=== PATIENT | male | born 1960 | race Caucasian/White ===

== ENCOUNTER 2021-07-11 13:02 | Emergency (ER) | payer OTHER, SELFPAY ==
[2021-07-11 13:15] VITALS: BP 152/87; PULSE 85; RESP 18; TEMP 36.8; O2SAT 99
[2021-07-11 15:18] LABS: Basophils Absolute Auto 0.1 K/mm3 (0.0-0.1); Basophils Percent Auto 0.7 % (0.2-1.2); Eosinophils Absolute Auto 0.2 K/mm3 (0-0.3); Eosinophils Percent Auto 2.2 % (0-4.4); Hematocrit 45.4 % (42.0-52.0); Hemoglobin 15.1 g/dL (14.0-18.0); Immature Granulocyte Absolute 0.03 K/mm3 (0.00-0.031); Immature Granulocyte Percent A 0.3 % (0-0.5); Lymphocytes Absolute Auto 3.04 K/mm3 (0.9-3.2); Lymphocytes Percent Auto 30.2 % (18.3-44.2); Mean Corpuscular HGB Conc 33.3 g/dl (32-36); Mean Corpuscular Hemoglobin 32.3 pg (26-34); Mean Platelet Volume 9.4 fl (7.4-10.4); Monocytes Percent Auto 10.3 % (2.6-8.5); Neutrophils Absolute Auto 5.7 K/mm3 (1.3-6.7); Neutrophils Percent Auto 56.3 % (45.5-73.1); Platelet Count Result 193 k/mm3 (150-375); Red Blood Count 4.68 M/mm3 (4.6-6.20); Red Cell Distribution Width 13.8 % (11.5-14.5); White Blood Count 10.1 K/mm3 (4.5-10.0)
[2021-07-11 15:24] LABS: Anion Gap 3 mmol/L (8-16); Blood Urea Nitrogen 14 mg/dL (9-20); Calcium 9.2 mg/dL (8.4-10.2); Carbon Dioxide 30 mmol/L (22-30); Chloride 107 mmol/L (98-107); Estimated CRCL calculation 97 ml/min; Estimated Glomerular Filt Rate > 60; Glucose 67 mg/dL (65-110); Potassium 3.8 mmol/L (3.4-5.0); Sodium 140 mmol/L (137-145)
--- NOTE | 2021-07-11 15:30 | ED.GENADULT ---
HPI - General Adult General Chief complaint: GI Bleed Stated complaint: bloody stool Time Seen by Provider: 07/11/21 14:57 Source: RN notes reviewed History of Present Illness HPI narrative: Patient presents emergency department from home for rectal bleeding. Patient states for the past 2 weeks he has been having blood in the toilet with pooping as well as with wiping he states that the blood is bright red in nature he states he is having 1 bowel movement a day denies any fevers or chills abdominal pain nausea vomiting diarrhea dizziness weakness or any other symptoms. States he takes a baby aspirin a day. States he has never had a colonoscopy Related Data Home Medications Medication Instructions Recorded Confirmed phenytoin sodium extended 100 mg 300 mg PO BID cap 05/10/19 10/12/20 capsule Adult One Daily Multivitamin 0.4 mg PO DAILY 05/18/19 10/12/20 aspirin [Aspir-81] 81 mg PO DAILY 05/18/19 10/12/20 loratadine 10 mg capsule 10 mg PO DAILY 09/19/20 10/12/20 Allergies Allergy/AdvReac Type Severity Reaction Status Date / Time Sulfa (Sulfonamide AdvReac Severe Other Verified 07/11/21 13:17 Antibiotics) Review of Systems Review of Systems: Gen.: Denies fevers or chills ENT: Denies congestion Respiratory: Denies shortness of breath or cough CV: Denies chest pain or palpitations GI: See HPI Musculoskeletal: Denies back pain or muscle pain Neuro: Denies numbness, tingling, weakness or focal weakness Skin: Denies rash Except as documented, all other systems reviewed and negative [facility] Past Medical History Medical History Asthma Coronary artery disease Patient of Dr. Nikhil Garcia. Foot fracture, right Hyperlipemia Hypertension MVP (mitral valve prolapse) Renal cyst, acquired Renal malignant neoplasm Status post cryoablation in 2014. Seizure disorder He has not had a seizure since 1994, but is on long-term Dilantin as he apparently had recurrent seizures when that drug was stopped. Swelling of right parotid gland Testicular hypofunction Tobacco dependence Surgical History Surgical History H/O removal of cyst History of heart artery stent x 2 in 2013. History of tonsillectomy Status post incision and drainage Left facial abscess. Family History Family History Sibling Cerebrovascular accident Mother Family history of Alzheimer's disease Sibling Lymphoma Father Hypertension Social History Social History Social History: The patient is and lives with his in [place]. They have 2 children. He designates his as his surrogate decision maker. 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 He smoked up to 2 packs cigarettes per day and now smokes be 10 and 15 cigarettes a day. No alcohol or drug abuse. Smoking packs per day: 0.5 Smoking cigarettes per day: 10.0 Years smoked: 25 Smoking pack-years: 12.50 Smoking status: Current every day smoker Tobacco type: cigarettes Second hand tobacco smoke exposure: Yes Alcohol intake: never Substance use: never Substance use type: does not use Gender identity (if verbalized by the patient): Male Spiritual care concerns: No Agree to blood products: Yes Exam Narrative: APPEARANCE: No acute distress, nontoxic, resting in bed EYES: EOMI HEENT: Normocephalic, atraumatic, OMM RESPIRATORY: No respiratory distress Clear to auscultation bilaterally with no rhonchi wheezing or rales. CARDIOVASCULAR: Regular rate and rhythm without murmurs rubs or gallops. ABDOMINAL: Soft, nontender, nondistended, no rebound or guarding Rectal: No hemorrhoids or fissures no active bleeding soft brown stool that is Hemoccult negative MUSCULOSKELETAl: Moves all extremities. NEURO: Awake and alert. Neris
[2021-07-11 15:31] LABS: Prothrombin Time 12.7 Seconds (11.1-14.7)
== END 2021-07-11 15:40 | disposition home or self-care (01) ==
PROVIDERS: Emergency Provider Emergency Medicine
DX: K62.5 Hemorrhage of anus and rectum (principal); F17.210 Nicotine dependence, cigarettes, uncomplicated; J45.909 Unspecified asthma, uncomplicated; I25.10 Atherosclerotic heart disease of native coronary artery without angina pectoris; E78.5 Hyperlipidemia, unspecified; I10 Essential (primary) hypertension; G40.909 Epilepsy, unspecified, not intractable, without status epilepticus
CPT/HCPCS: 36415; 80048; 85025; 85610; 85730; 86850; 86900; 86901; 99283

== ENCOUNTER 2021-08-27 00:39 | Day surgery (SDC) | payer OTHER, SELFPAY ==
[2021-08-15 09:28] VITALS: BMI 32.5
--- NOTE | 2021-08-27 07:11 | PM.HPGS ---
History of Present Illness History of Present Illness Consent: Risks, benefits, and alternatives have been discussed and questions answered. Patient agrees to proceed with procedure. Chief complaint: neoplasm screening Narrative: Klaus Saleem is a 60 year old male Was referred for colon cancer screening. This is his 1st colonoscopy. He has seen some red blood lately in his stools. Review of Systems Review of Systems: All systems reviewed & are unremarkable except as noted in HPI and below PMFSH Past Medical History Medical History Asthma Coronary artery disease Patient of Dr. Nikhil Garcia. Foot fracture, right Hyperlipemia Hypertension MVP (mitral valve prolapse) Renal cyst, acquired Renal malignant neoplasm Status post cryoablation in 2014. Seizure disorder He has not had a seizure since 1994, but is on long-term Dilantin as he apparently had recurrent seizures when that drug was stopped. Swelling of right parotid gland Testicular hypofunction Tobacco dependence Surgical History Surgical History H/O removal of cyst History of heart artery stent x 2 in 2013. History of tonsillectomy Status post incision and drainage Left facial abscess. Family History Family History Sibling Cerebrovascular accident Mother Family history of Alzheimer's disease Sibling Lymphoma Father Hypertension Social History Social History Social History: The patient is and lives with his in [place]. They have 2 children. He designates his as his surrogate decision maker. 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 He smoked up to 2 packs cigarettes per day and now smokes be 10 and 15 cigarettes a day. No alcohol or drug abuse. Smoking packs per day: 0.5 Smoking cigarettes per day: 10.0 Years smoked: 20 Smoking pack-years: 10.00 Smoking status: Current every day smoker Tobacco type: cigarettes Second hand tobacco smoke exposure: Yes Alcohol intake: never Substance use: never Substance use type: does not use Living arrangements: with family Gender identity (if verbalized by the patient): Male Spiritual care concerns: No Agree to blood products: Yes Meds Home Medications and Allergies Home Medications Medication Instructions Recorded Confirmed Type phenytoin sodium extended 100 mg 300 mg PO BID cap 05/10/19 08/15/21 History capsule aspirin [Aspir-81] 81 mg PO DAILY 05/18/19 08/15/21 History multivit with min-folic acid 1 tablet PO DAILY 05/18/19 08/15/21 History [Adult One Daily Multivitamin] loratadine 10 mg capsule 10 mg PO DAILY 09/19/20 08/15/21 History telmisartan 40 mg tablet 40 mg PO DAILY #90 tablet 05/16/21 08/15/21 Rx simvastatin 20 mg tablet 40 mg PO QPM tablet 07/17/21 08/15/21 History Allergies Allergy/AdvReac Type Severity Reaction Status Date / Time Sulfa (Sulfonamide AdvReac Severe Other Verified 08/27/21 09:33 Antibiotics) Exam Resp: Auscultation: clear to auscultation bilaterally Cardio: Rate: regular rate Rhythm: regular rhythm GI: GI Palp: Yes Soft to palpation and No Tenderness to palpation present (GI) Assessment and Plan Assessment and plan (1) Colon cancer screening: Code(s): Z12.11 - Encounter for screening for malignant neoplasm of colon Status: Acute Assessment and Plan: Colonoscopy with possible biopsy or polypectomy or cautery or injection of substances.
[2021-08-27 09:33] VITALS: BP 146/84; PULSE 85; RESP 16; TEMP 36.7; O2SAT 100; BMI 30.4
--- NOTE | 2021-08-27 09:38 | WPDANESEPPF ---
Anes - Initial Pre Proc Eval Procedure: Operation Date: 08/27/21 11:00 Proposed Procedures p Screening Colonoscopy - Jermain Soria MD Date/Time: 08/27/21 09:38 Surgeon: Jermain Soria MD Pre Op Diagnosis: neoplasm screening Patient Data Age: 60 Gender: M Height: 1.83 m Weight: 101.7 kg Last Vital Signs Temp 36.7 C 08/27/21 09:33 Pulse 85 08/27/21 09:33 Resp 16 08/27/21 09:33 BP 146/84 H 08/27/21 09:33 Pulse Ox 100 08/27/21 09:33 Allergies Allergy/AdvReac Type Severity Reaction Status Date / Time Sulfa (Sulfonamide AdvReac Severe Other Verified 08/27/21 09:33 Antibiotics) Home Medications Medication Instructions Recorded Confirmed Type phenytoin sodium extended 100 mg 300 mg PO BID cap 05/10/19 08/15/21 History capsule aspirin [Aspir-81] 81 mg PO DAILY 05/18/19 08/15/21 History multivit with min-folic acid 1 tablet PO DAILY 05/18/19 08/15/21 History [Adult One Daily Multivitamin] loratadine 10 mg capsule 10 mg PO DAILY 09/19/20 08/15/21 History telmisartan 40 mg tablet 40 mg PO DAILY #90 tablet 05/16/21 08/15/21 Rx simvastatin 20 mg tablet 40 mg PO QPM tablet 07/17/21 08/15/21 History Patient hx anesthesia problems: none Family hx anesthesia problems: none Results Review: All pre-operative results and documents have been reviewed as part of the pre-operative evaluation. [facility] Past Medical History Medical History Asthma Coronary artery disease Patient of Dr. Nikhil Garcia. Foot fracture, right Hyperlipemia Hypertension MVP (mitral valve prolapse) Renal cyst, acquired Renal malignant neoplasm Status post cryoablation in 2014. Seizure disorder He has not had a seizure since 1994, but is on long-term Dilantin as he apparently had recurrent seizures when that drug was stopped. Swelling of right parotid gland Testicular hypofunction Tobacco dependence Surgical History Surgical History H/O removal of cyst History of heart artery stent x 2 in 2014. History of tonsillectomy Status post incision and drainage Left facial abscess. Family History Family History Sibling Cerebrovascular accident Mother Family history of Alzheimer's disease Sibling Lymphoma Father Hypertension Social History Social History Social History: The patient is and lives with his in [place]. They have 2 children. He designates his as his surrogate decision maker. 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 He smoked up to 2 packs cigarettes per day and now smokes be 10 and 15 cigarettes a day. No alcohol or drug abuse. Smoking packs per day: 0.5 Smoking cigarettes per day: 10.0 Years smoked: 20 Smoking pack-years: 10.00 Smoking status: Current every day smoker Tobacco type: cigarettes Second hand tobacco smoke exposure: Yes Alcohol intake: never Substance use: never Substance use type: does not use Living arrangements: with family Gender identity (if verbalized by the patient): Male Spiritual care concerns: No Agree to blood products: Yes Anes - Eval Final PreProcedure Day of Procedure 08/27/21 09:38 Patient weight: obese Heart: regular rate and rhythm Lungs: clear to auscultation Airway: Mallampati scale class III Neurological: alert and oriented Last oral intake: >/= 8 hours ASA classification: III Emergent: no Anesthetic plan: proceed Anesthesia type and monitoring: general GIVS and standard monitoring Results Review: All pre-operative results and documents have been reviewed as part of the pre-operative evaluation. Informed Consent: The patient's anesthetic plan and its attendant risks and benefits were discussed with the patient/family/POA. Questions were solicited and answers provided to
[2021-08-27] MEDS: LACTATED RINGERS 1,000 ML 150 ML IV CONT (09:44)
[2021-08-27 10:45] VITALS: BP 122/79; PULSE 71; RESP 13; O2SAT 99
[2021-08-27 10:55] VITALS: BP 124/84; PULSE 69; RESP 15; O2SAT 100
[2021-08-27 11:05] VITALS: BP 131/87; PULSE 65; RESP 16; O2SAT 100
== END 2021-08-27 11:18 | disposition home or self-care (01) ==
PROVIDERS: PCP Family Medicine; Visit Provider Internal Medicine Gastroenterology
PROC: 0DJD8ZZ Inspection of Lower Intestinal Tract, Via Natural or Artificial Opening Endoscopic (ICD-10-PCS; CPT 45378; principal; 2021-08-27 11:00)
DX: Z12.11 Encounter for screening for malignant neoplasm of colon (principal); D12.4 Benign neoplasm of descending colon; D12.5 Benign neoplasm of sigmoid colon; K64.8 Other hemorrhoids; K57.30 Diverticulosis of large intestine without perforation or abscess without bleeding; K63.5 Polyp of colon; Z79.82 Long term (current) use of aspirin; J45.909 Unspecified asthma, uncomplicated; I25.10 Atherosclerotic heart disease of native coronary artery without angina pectoris; E78.5 Hyperlipidemia, unspecified; I10 Essential (primary) hypertension; I34.1 Nonrheumatic mitral (valve) prolapse; N28.1 Cyst of kidney, acquired; G40.909 Epilepsy, unspecified, not intractable, without status epilepticus; Z85.53 Personal history of malignant neoplasm of renal pelvis; F17.210 Nicotine dependence, cigarettes, uncomplicated; E66.9 Obesity, unspecified; Z68.30 Body mass index [BMI] 30.0-30.9, adult; Z95.5 Presence of coronary angioplasty implant and graft
CPT/HCPCS: 45385; 45381; 88305; J2704; J7120

== ENCOUNTER 2022-01-21 17:11 | Observation (INO) | payer OTHER, SELFPAY ==
[2022-01-21] VITALS (10 sets, daily range): BP systolic 140–160; BP diastolic 72–95; PULSE 63–74; RESP 9–18; TEMP 36.9; O2SAT 97–99
--- NOTE | ~2022-01-21 | XR_ITS ---
EXAMINATION: XR chest 2V Exam Date/Time: 01/21/2022 17:30 CDT HISTORY: Generalized cp,SOB, and weakness HXCAD,ASTHMA,HTN,MVP,SMOKER Comparison: 05/18/2019. RESULT: Lines, tubes, and devices: None. Lungs and pleura: Unchanged mild mid and lower lung reticulonodular opacities, otherwise clear. No f ocal consolidation. Cardiomediastinal silhouette: Stable. Other: No acute osseous or upper abdominal finding. IMPRESSION: Pulmonary opacities may represent bronchiolitis, as can be seen with atypical infection, asthma, aspi ration, and small airways disease. Reviewed, dictated and finalized at location K. IMPRESSION: Pulmonary opacities may represent bronchiolitis, as can be seen with atypical i nfection, asthma, aspiration, and small airways disease.
--- NOTE | ~2022-01-21 | NM_ITS ---
EXAMINATION: NM liz stress w perfusion DATE: 01/23/2022 11:46 CDT INDICATION: Chest pain TECHNIQUE: Rest images were obtained following intravenous administration of 9 mCi Tc99m tetrofosmin (Myoview). The patient was infused intravenously with Lexiscan (regadenoson). Then, 26.9 mCi Tc99m te trofosmin (Myoview) was administered intravenously, and stress images were obtained. Data was reconst ructed into short axis and horizontal and vertical long axis SPECT images. Gated SPECT images were al so obtained. COMPARISON: None. FINDINGS: There is a small, mild intensity partially reversible perfusion defect of the anterior and lateral major of the left ventricle, consistent with ischemia. There is no segmental wall motion abn ormality. Left ventricular ejection fraction measures 57%. IMPRESSION: 1. Small, mild intensity partially reversible perfusion defect anterior and lateral major of the left ventricle, consistent with ischemia.. 2. Decreased left ventricular ejection fraction measuring 57%. Reviewed, dictated and finalized at location A. IMPRESSION: 1. Small, mild intensity partially reversible perfusion defect anterior and lat eral major of the left ventricle, consistent with ischemia.. 2. Decreased left ventricular ejection fraction measuring 57%.
--- NOTE | 2022-01-21 17:12 | ECG_ITS ---
Measurements Intervals [place] Rate: 75 P: 48 WV: 141 QRS: 25 QRSD: 109 T: 49 QT: 398 QTc: 446 Interpretive Statements SINUS RHYTHM INCOMPLETE RIGHT BUNDLE BRANCH BLOCK BORDERLINE ECG COMPARED TO ECG 05/18/2019 12:08:32 NO SIGNIFICANT CHANGES Electronically Signed On 01-21-2022 20:41:07 CDT by Heraclio Maldonado D.O.
[2022-01-21 17:33] LABS: Basophils Absolute Auto 0.1 K/mm3 (0.0-0.1); Basophils Percent Auto 0.8 % (0.2-1.2); Eosinophils Absolute Auto 0.3 K/mm3 (0-0.3); Eosinophils Percent Auto 3.6 % (0-4.4); Hematocrit 44.8 % (42.0-52.0); Hemoglobin 15.2 g/dL (14.0-18.0); Immature Granulocyte Absolute 0.03 K/mm3 (0.00-0.031); Immature Granulocyte Percent A 0.4 % (0-0.5); Lymphocytes Absolute Auto 2.62 K/mm3 (0.9-3.2); Lymphocytes Percent Auto 31.2 % (18.3-44.2); Mean Corpuscular HGB Conc 33.9 g/dl (32-36); Mean Corpuscular Hemoglobin 32.1 pg (26-34); Mean Corpuscular Volume 94.5 fl (80-100); Mean Platelet Volume 9.2 fl (7.4-10.4); Monocytes Absolute Auto 0.9 K/mm3 (0.1-0.6); Monocytes Percent Auto 10.1 % (2.6-8.5); Neutrophils Absolute Auto 4.5 K/mm3 (1.3-6.7); Neutrophils Percent Auto 53.9 % (45.5-73.1); Platelet Count Result 193 k/mm3 (150-375); Red Blood Count 4.74 M/mm3 (4.6-6.20); Red Cell Distribution Width 14.2 % (11.5-14.5); White Blood Count 8.4 K/mm3 (4.5-10.0)
[2022-01-21 17:44] LABS: Alanine Aminotransferase 37 U/L (6-50); Albumin Level 4.1 g/dL (3.5-5.1); Alkaline Phosphatase 113 U/L (38-126); Anion Gap 7 mmol/L (8-16); Aspartate Amino Transferase 26 U/L (17-59); Bilirubin,Total 0.3 mg/dL (0.2-1.3); Blood Urea Nitrogen 13 mg/dL (9-20); Calcium 8.9 mg/dL (8.4-10.2); Carbon Dioxide 25 mmol/L (22-30); Chloride 104 mmol/L (98-107); Estimated CRCL calculation 107 ml/min; Estimated Glomerular Filt Rate > 60; Glucose 118 mg/dL (65-110); Lipase 121 U/L (23-300); Potassium 3.2 mmol/L (3.4-5.0); Sodium 136 mmol/L (137-145)
[2022-01-21 17:47] LABS: Prothrombin Time 13.2 Seconds (11.1-14.7)
[2022-01-21 17:49] LABS: Partial Thromboplastin Time 32.9 SECONDS (22.3-36.8)
[2022-01-21 17:56] LABS: Troponin I < 0.012 ng/mL (0.000-0.034)
--- NOTE | 2022-01-21 19:56 | ED.CHESTPAIN ---
HPI - Chest Pain General Chief Complaint: Chest Pain Stated Complaint: short of breath, chest pain Time Seen by Provider: 01/21/22 19:45 Source: RN notes reviewed History of Present Illness HPI narrative: Patient presents emergency department from home for chest pain. Patient states he was at work today and was leaving work when he had tightness in the left side of his chest that went to his back he states the pain is now resolved at this time states he does note shortness of breath with the pain states he has been feeling fatigued over the past several days states he is taken at home COVID test that has been negative he denies any fevers or chills cough abdominal pain nausea vomiting or any other symptoms patient does note cardiac history with a history of stents in [address] Garcia Related Data Home Medications Medication Instructions Recorded Confirmed phenytoin sodium extended 100 mg 300 mg PO BID 05/10/19 12/03/21 capsule aspirin 81 mg tablet,delayed 81 mg PO DAILY 05/18/19 12/03/21 release (Aspir-) multivitamin with minerals-folic 1 tablet PO DAILY 05/18/19 12/03/21 acid 0.4 mg tablet (Adult One Daily Multivitamin) loratadine 10 mg capsule 10 mg PO DAILY 09/19/20 12/03/21 simvastatin 20 mg tablet 40 mg PO QPM 07/17/21 12/03/21 Allergies Allergy/AdvReac Type Severity Reaction Status Date / Time Sulfa (Sulfonamide AdvReac Severe Other Verified 12/03/21 11:22 Antibiotics) Review of Systems Review of Systems: Gen.: Denies fevers or chills ENT: Denies congestion Respiratory: Denies shortness of breath or cough CV: Reports chest pain GI: Denies abdominal pain nausea, emesis or diarrhea Musculoskeletal: Denies back pain or muscle pain Neuro: Denies numbness, tingling, reports generalized weakness Skin: Denies rash Except as documented, all other systems reviewed and negative PMFSH Past Medical History Medical History Asthma Coronary artery disease Patient of Dr. Nikhil Garcia. Foot fracture, right Hyperlipemia Hypertension MVP (mitral valve prolapse) Renal cyst, acquired Renal malignant neoplasm Status post cryoablation in 2014. Seizure disorder He has not had a seizure since 1994, but is on long-term Dilantin as he apparently had recurrent seizures when that drug was stopped. Swelling of right parotid gland Testicular hypofunction Tobacco dependence Surgical History Surgical History H/O removal of cyst History of heart artery stent x 2 in 2014. History of tonsillectomy Status post incision and drainage Left facial abscess. Family History Family History Sibling Cerebrovascular accident Mother Family history of Alzheimer's disease Sibling Lymphoma Father Hypertension Social History Social History Social History: The patient is and lives with his in [place]. They have 2 children. He designates his as his surrogate decision maker. 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 No alcohol or drug abuse. Smoking packs per day: 0.5 Smoking cigarettes per day: 10.0 Years smoked: 20 Smoking pack-years: 10.00 Smoking status: Current every day smoker Tobacco type: cigarettes Second hand tobacco smoke exposure: Yes Alcohol intake: never Substance use: never Substance use type: does not use Gender identity (if verbalized by the patient): Male Spiritual care concerns: No Agree to blood products: Yes Exam Narrative: APPEARANCE: No acute distress, nontoxic, resting in bed EYES: EOMI HEENT: Normocephalic, atraumatic, OMM RESPIRATORY: No respiratory distress Clear to auscultation bilaterally with no rhonchi wheezing or rales. CARDIOVASCULAR: Regular rate and
[2022-01-21] MEDS: POTASSIUM CHLORIDE 20 MEQ TABLET PO (20:20)
[2022-01-21 20:22] LABS: D Dimer 0.29 ug/mL (<0.48)
[2022-01-21 20:52] LABS: Troponin I < 0.012 ng/mL (0.000-0.034)
[2022-01-21] MEDS: ASPIRIN 81 MG CHEWABLE TABLET 324 MG PO (21:39)
--- NOTE | 2022-01-21 22:05 | PM.IMHP ---
H&P: HPI History of Present Illness Date/Time: 01/21/22 22:05 Chief Complaint: Chest pain. Narrative: This is a very pleasant 61-year-old male with with coronary artery disease status post stent x2 in 2013 who presented to the emergency department earlier this afternoon for evaluation of chest pain.?He is a patient of Dr. Nikhil Garcia and he is due to have a yearly checkup with him. The last several weeks he has been getting unusually fatigued with activity such as mowing or playing with his grand children. Today while walking out of work he developed nonradiating, left anterior chest tightness with mild lightheadedness and sweating. He denies associated shortness of breath, nausea, and vomiting. He rates his discomfort at 6-7/10 when it first started and it is now 3/10 after receiving baby aspirin in the emergency department. Initial troponin was negative and EKG did not show any acute ST segment changes. Given his cardiac history he is being admitted overnight for closer monitoring and Cardiology consultation tomorrow. Review of Systems Review of Systems: Twelve systems were reviewed. No recent cold or flu symptoms. No epigastric or abdominal pain. No significant symptoms of GERD or indigestion. He does not have reproducible tenderness over the chest wall. No pleuritic pain. No lower extremity edema. Except as documented, all other systems were reviewed and are negative. [facility] Past Medical History Medical History (Updated 01/21/22 @ 22:53 by Tram Donahue PA-C) Asthma Coronary artery disease Patient of Dr. Nikhil Garcia. 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 Seizure disorder He has not had a seizure since 1994, but is on long-term Dilantin as he apparently had recurrent seizures when that drug was stopped. Tobacco dependence Surgical History Surgical History (Updated 01/21/22 @ 22:45 by Tram Donahue PA-C) History of heart artery stent (2013) x 2 in 2013. History of removal of cyst History of tonsillectomy Status post incision and drainage Left facial abscess. Family History Family History Sibling Cerebrovascular accident Mother Family history of Alzheimer's disease Sibling Lymphoma Father Hypertension Social History Social History (Updated 01/21/22 @ 22:46 by Tram Donahue PA-C) Social History: The patient is and lives with his in [place]. They have 2 children. He designates his as his surrogate decision maker. 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 No alcohol or drug abuse. he designates his , Lanie Saleem, as his surrogate decision maker and he wishes to be a full code. Spiritual care concerns: No Agree to blood products: Yes Meds Home Medications and Allergies Home Medications Medication Instructions Recorded Confirmed Type phenytoin sodium extended 100 mg 300 mg PO BID 05/10/19 12/03/21 History capsule aspirin 81 mg tablet,delayed 81 mg PO DAILY 05/18/19 12/03/21 History release (Aspir-) multivitamin with minerals-folic 1 tablet PO DAILY 05/18/19 12/03/21 History acid 0.4 mg tablet (Adult One Daily Multivitamin) loratadine 10 mg capsule 10 mg PO DAILY 09/19/20 12/03/21 History simvastatin 20 mg tablet 40 mg PO QPM 07/17/21 12/03/21 History telmisartan 40 mg tablet 40 mg PO DAILY #90 tabs 11/28/21 12/03/21 Rx Allergies Allergy/AdvReac Type Severity Reaction Status Date / Time Sulfa (Sulfonamide AdvReac Severe Other Verified 12/03/21 11:22 Antibiotics) Vital Signs Vital Signs - 24 hr 01/21/22 17:22 01/21/22 20:10 Temperature 98.4 F Pulse Rate 73 67 Respiratory Rate 18 12 Blood Pressure 160/72 H Pulse Oximetry 99 97 Oxygen Delivery Room Air Exam Narrative: General: Well-developed male supi
[2022-01-21] MEDS: ASPIRIN 81 MG CHEWABLE TABLET 324 MG (23:05)
[2022-01-21 23:14] LABS: SARS-CoV-2 RNA PCR Negative
[2022-01-21 23:41] LABS: Phenytoin Dilantin 4 ug/mL (10-20)
[2022-01-21 23:50] LABS: Troponin I < 0.012 ng/mL (0.000-0.034)
[2022-01-22] VITALS (16 sets, daily range): BP systolic 136–152; BP diastolic 64–91; PULSE 61–80; RESP 12–18; TEMP 35.5–36.8; O2SAT 96–100; BMI 30.9
[2022-01-22] MEDS: PHENYTOIN SODIUM 100 MG EXTENDED RELEASE CAP 300 MG PO ×3 (01:11→20:53)
--- NOTE | 2022-01-22 01:19 | ADMGEN ---
This patient, Klaus Saleem, was admitted to IMU Room 206-02 on 01/22/22 at 0000. Patient/family oriented to hospital policies and general routines including ID bracelet, bed and alarms, visiting hours, pain management, procedures, bathroom and other care routines, personal items, smoking policy, room service/diet, and visiting hours. Information on how to activate the Rapid Response Team has been discussed. Patient/Family are encouraged to report perceived risks to care and to ask questions if they do not understand what they are told or what they should do.
[2022-01-22 05:12] LABS: Anion Gap 7 mmol/L (8-16); Blood Urea Nitrogen 12 mg/dL (9-20); Carbon Dioxide 28 mmol/L (22-30); Chloride 107 mmol/L (98-107); Estimated CRCL calculation 105 ml/min; Estimated Glomerular Filt Rate > 60; Glucose 80 mg/dL (65-110); Potassium 4.2 mmol/L (3.4-5.0); Sodium 142 mmol/L (137-145)
[2022-01-22] MEDS: TELMISARTAN 40 MG TABLET PO (08:22)
[2022-01-22] MEDS: ASPIRIN 81 MG ENTERIC TABLET PO (08:22)
[2022-01-22] MEDS: ENOXAPARIN 40 MG/0.4 ML SYRINGE SUB-Q (13:52)
--- NOTE | 2022-01-22 14:57 | PM.CNCAR ---
Assessment and Plan Assessment and plan (1) Hypertension: Qualifiers: Hypertension type: essential hypertension Qualified Code(s): I10 - Essential (primary) hypertension Code(s): I10 - Essential (primary) hypertension Status: Acute (2) Coronary artery disease: Qualifiers: Coronary Disease-Associated Artery/Lesion type: [place] artery [place] vs. transplanted heart: [place] heart Associated angina: without angina Qualified Code(s): I25.10 - Atherosclerotic heart disease of [place] coronary artery without angina pectoris Code(s): I25.10 - Atherosclerotic heart disease of [place] coronary artery without angina pectoris Status: Acute (3) Chest pain: Code(s): R07.9 - Chest pain, unspecified Status: Acute (4) Hyperlipemia: Qualifiers: Hyperlipidemia type: mixed hyperlipidemia Qualified Code(s): E78.2 - Mixed hyperlipidemia Code(s): E78.5 - Hyperlipidemia, unspecified Status: Acute Plan Continue with ASA and statin. Will start beta jass for antianginal therapy. Stress MPI tomorrow. Patient to be NPO at midnight. Will check lipid panel. History of Present Illness History of Present Illness Consult date/time: 01/22/22 14:57 Requesting physician: Parminder Nino DO Consult reason: chest pain Reason For Visit: chest pain Narrative: Patient is a 61-year-old male with a history of CAD s/p prior PCI, hypertension, and hyperlipidemia who presented with chest pain. Had left anterior chest pain while walking yesterday. Non-radiating, no associated symptoms. Chest pain resolved after being in the ER waiting room. Has not had recurrence of chest pain. Troponins negative x 3, ECG negative for ischemic changes. Patient had last cath in 2019, and patient reports his chest pain yesterday felt similar to when he was cathed two years ago. Cardiac cath 05/2019 showed coronary artery disease angiographically stable following percutaneous revascularization in 2014 angiographic appearance of the arteries appears to be essentially unchanged that which was seen at the conclusion of the previous procedure. Review of Systems Review of Systems: All systems reviewed & are unremarkable except as noted in HPI and below (HPI) [facility] Past Medical History Medical History Asthma Coronary artery disease Patient of Dr. Nikhil Garcia. 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 Seizure disorder He has not had a seizure since 1994, but is on long-term Dilantin as he apparently had recurrent seizures when that drug was stopped. Tobacco dependence Surgical History Surgical History History of heart artery stent (2013) x 2 in 2014. History of removal of cyst History of tonsillectomy Status post incision and drainage Left facial abscess. Family History Family History Sibling Cerebrovascular accident Mother Family history of Alzheimer's disease Sibling Lymphoma Father Hypertension Acute myocardial infarction Grandparent Congestive heart failure Social History Social History Social History: The patient is and lives with his in [place]. They have 2 children. He designates his as his surrogate decision maker. 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 No alcohol or drug abuse. he designates his , Lanie Saleem, as his surrogate decision maker and he wishes to be a full code. Smoking packs per day: 0.5 Smoking cigarettes per day: 10.0 Smoking status: Current every day smoker Tobacco type: cigarettes Second hand tobacco smoke exposure: Yes Alcohol intake: former Substance use: never Spi
[2022-01-22 16:19] LABS: Cholesterol 155 mg/dL (0-200); HDL Direct 40 mg/dL; Triglycerides 105 mg/dL (<150)
[2022-01-22 16:30] LABS: LDL Cholesterol Direct 85 mg/dL
[2022-01-22] MEDS: SIMVASTATIN 20 MG TABLET 40 MG PO (17:13)
--- NOTE | 2022-01-22 18:28 | PM.IMPN ---
Progress Note: A&P Assessment and Plan (1) Chest pain: Code(s): R07.9 - Chest pain, unspecified Status: Acute Assessment and Plan: Unsure of etiology, appreciate Cardiology consultation, stress test pending tomorrow (2) Hypertension: Qualifiers: Hypertension type: essential hypertension Qualified Code(s): I10 - Essential (primary) hypertension Code(s): I10 - Essential (primary) hypertension Status: Acute Assessment and Plan: Continue telmisartan (3) Hyperlipemia: Qualifiers: Hyperlipidemia type: mixed hyperlipidemia Qualified Code(s): E78.2 - Mixed hyperlipidemia Code(s): E78.5 - Hyperlipidemia, unspecified Status: Acute Assessment and Plan: Continue statin (4) Seizure disorder: Code(s): G40.909 - Epilepsy, unspecified, not intractable, without status epilepticus Status: Acute Assessment and Plan: Has not had a seizure for years, continue Dilantin for long-term therapy (5) Tobacco dependence: Code(s): F17.200 - Nicotine dependence, unspecified, uncomplicated Status: Acute (6) Coronary artery disease: Qualifiers: Coronary Disease-Associated Artery/Lesion type: [place] artery [place] vs. transplanted heart: [place] heart Associated angina: without angina Qualified Code(s): I25.10 - Atherosclerotic heart disease of [place] coronary artery without angina pectoris Code(s): I25.10 - Atherosclerotic heart disease of [place] coronary artery without angina pectoris Status: Acute Assessment and Plan: Continue aspirin and statin, appreciate Cardiology consult Plan DVT prophylaxis with Lovenox GI prophylaxis not indicated Code status full code Subjective Date/time seen: 01/22/22 18:28 Interval history: No overnight events noted. No chest pain or shortness of breath. No nausea, vomiting or diarrhea. No fevers or chills. Review of Systems Review of Systems: 12 point review of systems was assessed and was negative except as noted in the HPI Exam Narrative: General: No acute distress, alert and oriented per baseline HEENT: Atraumatic, normocephalic, mucous membranes moist CV: Regular rate and rhythm, S1, S2 Lungs: Clear to auscultation bilaterally, no rales or crackles noted, no wheezes, good air entry Abdomen: Soft, nontender, nondistended Extremities: Normal to inspection Skin: No rashes noted, no lesions or wounds seen Psych: Euthymic, normal affect Objective Data Vital Signs Vital Signs: Vital Signs - 24 hr 01/21/22 20:10 01/21/22 20:16 01/21/22 20:46 Temperature Pulse Rate 67 69 65 Respiratory Rate 12 9 L 17 Blood Pressure 153/91 H 158/87 H Pulse Oximetry 97 97 97 Oxygen Delivery 01/21/22 21:01 01/21/22 21:16 01/21/22 21:46 Temperature Pulse Rate 66 70 74 Respiratory Rate 16 16 13 Blood Pressure 156/95 H 140/83 146/88 H Pulse Oximetry 97 99 97 Oxygen Delivery 01/21/22 22:01 01/21/22 22:31 01/21/22 22:46 Temperature Pulse Rate 65 63 68 Respiratory Rate 13 13 14 Blood Pressure 142/90 H 144/80 H 160/89 H Pulse Oximetry 98 97 98 Oxygen Delivery 01/22/22 00:02 01/22/22 00:00 01/22/22 00:00 Temperature 97.9 F Pulse Rate 73 73 Respiratory Rate 18 Blood Pressure 152/88 H Pulse Oximetry 97 Oxygen Delivery Room Air 01/22/22 02:00 01/22/22 04:00 01/22/22 04:00 Temperature 98.2 F Pulse Rate 67 68 Respiratory Rate 18 Blood Pressure 136/64 Pulse Oximetry 99 Oxygen Delivery Room Air 01/22/22 04:00 01/22/22 06:00 01/22/22 08:00 Temperature 96 F L Pulse Rate 80 66 69 Respiratory Rate 16 Blood Pressure 137/83 Pulse Oximetry 100 Oxygen Delivery 01/22/22 08:26 01/22/22 08:00 01/22/22 10:00 Temperature Pulse Rate 64 79 Respiratory Rate Blood Pressure Pulse Oximetry 99 Oxygen Delivery Room Air 01/22/22 08:00 01/22/22 11:52 01/22/22 12[facility]
[2022-01-23] VITALS (10 sets, daily range): BP systolic 142–165; BP diastolic 74–92; PULSE 63–82; RESP 16–18; TEMP 36.6–37; O2SAT 92–98
--- NOTE | 2022-01-23 08:00 | EST_ITS ---
Patient Info Name: Klaus Saleem Age: 61 years : 1960 Gender: Male Ht: 72 in Wt: 227 lbs BSA: 2.31 m2 Exam Date: 01/23/2022 9:55 AM Exam Location: [facility] Stress Patient Status: Inpatient Admit Date: 01/21/2022 Staff Ordering Physician: Chela Fajardo MD Attending Provider: Jason Plaza MD Exercise Technologist: Chencho Coffey RDCS, RT Exercise Physician: Chela Fajardo MD Exam Type: CA stress liz w NM Study Info A regadenoson stress test was performed. Summary 1. No abnormal ST-T wave changes with lexiscan. 2. Please correlate with nuclear medicine images, reported separately. Protocol: Lexiscan Stress ECG Details Stage: REST Duration (min): 3 min : 50 sec HR (bpm): 67 SBP (mmHg): 137 DBP (mmHg): 91 Stage: REST Duration (min): 19 min : 1 sec HR (bpm): 69 SBP (mmHg): 137 DBP (mmHg): 91 Stage: STAGE 1 Duration (min): 1 min : 0 sec HR (bpm): 78 SBP (mmHg): 149 DBP (mmHg): 96 Stage: RECOVERY Duration (min): 1 min : 0 sec HR (bpm): 88 SBP (mmHg): 149 DBP (mmHg): 96 Stage: RECOVERY Duration (min): 2 min : 0 sec HR (bpm): 87 SBP (mmHg): 149 DBP (mmHg): 96 Stage: RECOVERY Duration (min): 3 min : 0 sec HR (bpm): 82 SBP (mmHg): 161 DBP (mmHg): 88 Stage: RECOVERY Duration (min): 3 min : 16 sec HR (bpm): 83 SBP (mmHg): 161 DBP (mmHg): 88 Rest HR: 69 bpm Peak HR: 91 bpm Rest Sys BP: 137 mmHg Peak Sys BP: 161 mmHg Max Pred HR: 159 bpm % Max Pred HR: 57 % Target HR: 135 bpm Max RPP: 14,651 bpm*mmHg Total Time: 1 min : 0 sec Rest Smith BP: 91 mmHg Peak Smith BP: 88 mmHg Total Dose: 0.4 mg Resting ECG Normal sinus rhythm with PAC. Incomplete right bundle branch block. Stress ECG Sinus rhythm. Incomplete right bundle branch block. No abnormal ST/T wave changes with exercise. Report Signatures
[2022-01-23] MEDS: METOPROLOL SUCCINATE EXT REL 25 MG TABCR PO (09:03)
[2022-01-23] MEDS: TELMISARTAN 40 MG TABLET PO (13:26)
[2022-01-23] MEDS: PHENYTOIN SODIUM 100 MG EXTENDED RELEASE CAP 300 MG PO (13:27)
[2022-01-23] MEDS: ASPIRIN 81 MG ENTERIC TABLET PO (13:27)
[2022-01-23] MEDS: ENOXAPARIN 40 MG/0.4 ML SYRINGE SUB-Q (13:28)
--- NOTE | 2022-01-23 13:43 | PM.PNCARD ---
Progress Note: A&P Assessment and Plan (1) Hypertension: Qualifiers: Hypertension type: essential hypertension Qualified Code(s): I10 - Essential (primary) hypertension Code(s): I10 - Essential (primary) hypertension Status: Acute (2) Coronary artery disease: Qualifiers: Coronary Disease-Associated Artery/Lesion type: [place] artery [place] vs. transplanted heart: [place] heart Associated angina: without angina Qualified Code(s): I25.10 - Atherosclerotic heart disease of [place] coronary artery without angina pectoris Code(s): I25.10 - Atherosclerotic heart disease of [place] coronary artery without angina pectoris Status: Acute (3) Hyperlipemia: Qualifiers: Hyperlipidemia type: mixed hyperlipidemia Qualified Code(s): E78.2 - Mixed hyperlipidemia Code(s): E78.5 - Hyperlipidemia, unspecified Status: Acute (4) Seizure disorder: Code(s): G40.909 - Epilepsy, unspecified, not intractable, without status epilepticus Status: Acute Plan Lexiscan reviewed with the patient and his at bedside, which showed small mild intensity partially reversible perfusion defect in the anterior and lateral major of the left ventricle; no segmental wall motion abnormality. Left ventricular ejection fraction measures 57%. Discussed with the patient and his treatment options of medical management or consideration of cardiac catheterization. As patient has not had recurrences of chest pain, troponins negative, ECG without ischemic changes, and only a small territory of ischemia on nuclear stress test, we will proceed with medical management at this time. Continue aspirin 81 mg daily. Would recommend to change simvastatin to high-intensity atorvastatin or rosuvastatin. Increase metoprolol to 50 mg for anti anginal therapy. Given elevated blood pressures, would recommend to start amlodipine for blood pressure control and additional antianginal therapy. Would discharge patient on p.r.n. sublingual nitroglycerin. Patient to follow-up with us in Cardiology Clinic. If patient has anginal symptoms despite optimal medical therapy, then we will consider cardiac catheterization at that time. Subjective Date/time seen: 01/23/22 13:43 Interval history: No acute events overnight. Patient remains without any further chest pain since admission. No other cardiac symptoms. Review of Systems Review of Systems: All systems reviewed & are unremarkable except as noted in HPI and below (subjective) Exam Const: General: comfortable and no acute distress Neck: Neck: no JVD Resp: Effort & Inspection: normal respiratory effort Auscultation: clear to auscultation bilaterally, no crackles and no wheezes Cardio: Rate: regular rate Rhythm: regular rhythm Heart sounds: no murmurs Skin: General skin exam: normal color Neuro: Speech: normal speech Psych: Mental Status: mental status grossly normal Objective Data Vital Signs Vital Signs: Vital Signs - 24 hr 01/22/22 13:58 01/22/22 16:00 01/22/22 16:00 Temperature 36.7 C Pulse Rate 80 70 68 Respiratory Rate 12 Blood Pressure 143/91 H Pulse Oximetry 96 Oxygen Delivery 01/22/22 18:00 01/22/22 16:00 01/22/22 20:00 Temperature 36.6 C Pulse Rate 68 68 Respiratory Rate 18 Blood Pressure 136/84 Pulse Oximetry 99 Oxygen Delivery Room Air 01/22/22 20:00 01/22/22 20:00 01/22/22 22:00 Temperature Pulse Rate 70 64 Respiratory Rate Blood Pressure Pulse Oximetry Oxygen Delivery Room Air 01/22/22 23:16 01/23/22 00:00 01/23/22 00:00 Temperature 36.7 C Pulse Rate 61 63 Respiratory Rate 18 Blood Pressure 148/85 H Pulse Oximetry 98 Oxygen Delivery Room Air 01/23/22 02:00 01/23/22 04:00 01/23/22 04:00 Temperature 36.7 C Pulse Rate 64 63 63 Respiratory Rate 18 Blood Pressure 142/74 H Pulse Oximetry 97 Oxygen Delivery 01/23/22 04:00
--- NOTE | 2022-01-23 16:26 | PM.DS ---
DS: Admitting Diagnosis Discharge Date 01/23/22 Admitting Diagnosis Chest Pain DS: Discharge Diagnosis Discharge Diagnosis (1) Chest pain: Code(s): R07.9 - Chest pain, unspecified Status: Acute Assessment and Plan: ?Patient initially reported chest pressure. Troponin were negative. EKG did not suggest ACS. On, lexiscan there was a small, mild intensity partially reversible perfusion defect anterior and lateral major of the left ventricle, consistent with ischemia. Decreased left ventricular ejection fraction measuring 57%. This was discussed with the patient. The patient was amenable to follow up outpatient with Cardiology with the plan for medical optimization until that time. -Metoprolol increased to 50 mg daily -Rosuvastatin 20 mg qhs started -Continue ASA 81 mg daily -Start amlodipine 5 mg po daily -Gave ED warnings for chest pain -Telmisartan held until follow up with Cardiology or PCP due to concern for hyptension with the increasing of metoprolol and starting of amlodipine. (2) Hypertension: Qualifiers: Hypertension type: essential hypertension Qualified Code(s): I10 - Essential (primary) hypertension Code(s): I10 - Essential (primary) hypertension Status: Acute Assessment and Plan: Holding Telmistartan for discharge until follow up with Cardiology or Primary care Physician. --Start amlodipine 5 mg po daily -Start Toprol 50 mg daily (3) Hyperlipemia: Qualifiers: Hyperlipidemia type: mixed hyperlipidemia Qualified Code(s): E78.2 - Mixed hyperlipidemia Code(s): E78.5 - Hyperlipidemia, unspecified Status: Acute Assessment and Plan: Atorvastatin has an interaction with phenytoin, so rosuvastatin 20 mg was started for discharge. (4) Seizure disorder: Code(s): G40.909 - Epilepsy, unspecified, not intractable, without status epilepticus Status: Acute Assessment and Plan: Home phenytoin was continued. (5) Tobacco dependence: Code(s): F17.200 - Nicotine dependence, unspecified, uncomplicated Status: Acute Assessment and Plan: Discussed COPD and advised patient to stop smoking. (6) Coronary artery disease: Qualifiers: Associated angina: with stable angina Coronary Disease-Associated Artery/Lesion type: [place] artery [place] vs. transplanted heart: [place] heart Qualified Code(s): I25.118 - Atherosclerotic heart disease of [place] coronary artery with other forms of angina pectoris Code(s): I25.10 - Atherosclerotic heart disease of [place] coronary artery without angina pectoris Status: Acute Assessment and Plan: Patient has angina with reversible ischemia as noted on lexiscan today. Cardiology discussed with patient medical optimization and patient was amenable to this plan plus follow up with Cardiology outpatient. -Aspirin 81 mg daily -Toprol 50 mg daily -Amlodipine 5 mg daily -Rosuvastatin 20 mg qhs -PRN nitroglycerin DS: Summary Hospital Course Reason for hospitalization: Chest Pain with history of CAD s/p stent Hospital Course: 61M with a past medical history of coronary artery disease s/p stent x2 in 2013, tobacco abuse, hypertension who presented to the emergency department with chest pressure. Patient had no troponin elevation. EKG did not show indicate ACS. The pain was relieved after being given aspirin in the emergency department. Cardiology was consulted and preformed a lexiscan that showed reversible ischemia. Patient was started on metoprolol 50 mg, amlodipine 5 mg and rosuvastatin 20 mg for medical optimization with plan for follow up outpatient with Cardiology. Patient was advised to stop smoking. Patient also given as needed nitroglycerin. Patient discharged to home. Time Spent with Patient Time attestation: Total time spent providing and/or coordinating discharge services: greater than 30 minutes Ex
== END 2022-01-23 17:37 | disposition home or self-care (01) ==
LOC: ANHED 20:45 → ANHIMU 23:33
PROVIDERS: Internal Medicine; Physician Assistant; Admitting Provider Internal Medicine; Emergency Provider Emergency Medicine; PCP Family Medicine; Visit Provider Family Medicine
DX: R07.9 Chest pain, unspecified (principal); I10 Essential (primary) hypertension; E78.2 Mixed hyperlipidemia; G40.909 Epilepsy, unspecified, not intractable, without status epilepticus; F17.210 Nicotine dependence, cigarettes, uncomplicated; I25.118 Atherosclerotic heart disease of native coronary artery with other forms of angina pectoris; Z95.5 Presence of coronary angioplasty implant and graft; I45.10 Unspecified right bundle-branch block; J45.909 Unspecified asthma, uncomplicated; E87.6 Hypokalemia; R61 Generalized hyperhidrosis; R93.89 Abnormal findings on diagnostic imaging of other specified body structures; Z20.822 Contact with and (suspected) exposure to COVID-19; Z85.528 Personal history of other malignant neoplasm of kidney; Z92.89 Personal history of other medical treatment; Z79.82 Long term (current) use of aspirin; Z79.899 Other long term (current) drug therapy; Z82.49 Family history of ischemic heart disease and other diseases of the circulatory system; Z80.7 Family history of other malignant neoplasms of lymphoid, hematopoietic and related tissues
CPT/HCPCS: 36415; 71046; 78452; 80048; 80053; 80061; 80185; 83690; 83735; 84484; 85025; 85380; 85610; 85730; 93005; 93017; 96372; 99285; A9270; A9502; C9803; G0378; J1650; J2785; U0003; U0005

== ENCOUNTER 2024-10-31 18:31 | Emergency (ER) | payer OTHER, SELFPAY ==
--- NOTE | ~2024-10-31 | CT_ITS ---
EXAMINATION: CT abdomen pelvis w con DATE: 10/31/2024 19:28 INDICATION: LLQ abd pain; b/l CVA tenderness TECHNIQUE: Computed tomography (CT) of the abdomen and pelvis was performed with 100 mL Omnipaque-350 intravenous contrast. Automated exposure control and iterative reconstruction technique were employe d. The dose-length product was 1275.14 mGy-cm. COMPARISON: PA chest abdomen and pelvis 01/30/2019. FINDINGS: Lower thorax: Round 9 mm right middle lobe pulmonary nodule with central calcification and smooth mar gins. Liver: Multiple 3-4 mm hypodensities, too small to characterize, likely representing cysts or hemangi omas. Biliary/Gallbladder: Gallbladder is normal. No bile duct dilation. Pancreas: No mass or duct dilation. Spleen: Normal. Adrenals:No mass. Kidneys: Mild left hydronephrosis. 4 mm consultation in the mid left ureter. Simple bilateral renal c ysts. Multiple subcentimeter hypodensities, too small to characterize but most likely represent cysts . 1.9 cm hyperenhancing or hyperdense right upper pole lesion. Multiple additional indeterminate dens ity bilateral renal lesions, several of which demonstrate interval growth. Scar along the anterior mi d right renal cortex likely secondary to prior cryoablation. GI tract: Mild distal esophageal and antral wall edema. No small or large bowel dilation. Appendix no t confidently visualized Diverticulosis without diverticulitis. Mesentery/Peritoneum: No ascites, mass, or free air. Retroperitoneum: No mass. Atherosclerotic calcifications of intra-abdominal arterial vessels. Pelvis: Incompletely distended urinary bladder. Prostatomegaly. Soft Tissues: Small uncomplicated fat-containing umbilical and bilateral inguinal hernias. Bones: No acute osseous finding. IMPRESSION: Mild esophagitis and antral gastritis. 9 mm right middle lobe pulmonary nodule, new since the most recent comparison of 2019. Consider nonem ergent but timely low-dose noncontrast CT of the chest follow-up in 3 months, PET/CT, or biopsy. 4 mm stone in the mid left ureter causing mild objective uropathy. Multiple indeterminate density lateral renal lesions that have increased slightly in size since the c omparison study, given the personal history of renal cancer, recommend nonemergent but timely renal p rotocol MR or CT without and with contrast. Reviewed, dictated and finalized at location K. IMPRESSION: Mild esophagitis and antral gastritis. 9 mm right middle lobe pulmonary nodule, new since the most recent comparison o f 2018. Consider nonemergent but timely low-dose noncontrast CT of the chest fo llow-up in 3 months, PET/CT, or biopsy. 4 mm stone in the mid left ureter causing mild objective uropathy. Multiple indeterminate density lateral renal lesions that have increased slight ly in size since the comparison study, given the personal history of renal canc er, recommend nonemergent but timely renal protocol MR or CT without and with c ontrast.
[2024-10-31 18:39] VITALS: BP 155/85; PULSE 59; RESP 18; TEMP 36.9; O2SAT 96
[2024-10-31 18:55] LABS: Basophils Absolute Auto 0.1 K/mm3 (0.0-0.1); Basophils Percent Auto 0.5 % (0.2-1.2); Eosinophils Absolute Auto 0.2 K/mm3 (0-0.3); Eosinophils Percent Auto 1.8 % (0-4.4); Hematocrit 41.4 % (42.0-52.0); Hemoglobin 13.9 g/dL (14.0-18.0); Immature Granulocyte Absolute 0.06 K/mm3 (0.00-0.031); Immature Granulocyte Percent A 0.5 % (0-0.5); Lymphocytes Absolute Auto 2.71 K/mm3 (0.9-3.2); Lymphocytes Percent Auto 21.4 % (18.3-44.2); Mean Corpuscular HGB Conc 33.6 g/dl (32-36); Mean Corpuscular Volume 92.4 fl (80-100); Mean Platelet Volume 9.4 fl (7.4-10.4); Monocytes Percent Auto 7.9 % (2.6-8.5); Neutrophils Absolute Auto 8.6 K/mm3 (1.3-6.7); Neutrophils Percent Auto 67.9 % (45.5-73.1); Platelet Count Result 192 k/mm3 (150-375); Red Blood Count 4.48 M/mm3 (4.6-6.20); Red Cell Distribution Width 13.5 % (11.5-14.5); White Blood Count 12.7 K/mm3 (4.5-10.0)
[2024-10-31 18:58] LABS: Add Urine Microscopic? YES; Appearance Urine Turbid (Clear); Bacteria Urine None Seen /hpf; Bilirubin Urine Negative (Negative); Blood Urine 3+ (Negative); Color Urine Yellow (Yellow); Glucose Urine UA Negative (Negative); Ketones Urine Negative (Negative); Leukocyte Esterase Ur Negative LEU/UL (Negative); Nitrate Urine Negative (Negative); Non Pathogenic Casts 0-2; Protein Urine Trace mg/dL (Negative); RBC Urine >100 /hpf (0-2); Specific Grav Ur 1.015 (1.001-1.035); Squamous Epithelial Cell Urine None Seen /hpf (Few); WBC Urine 0-5 /hpf (0-3)
--- NOTE | 2024-10-31 19:04 | ED_ITS ---
HPI - Abdominal Pain General Chief Complaint: Abdominal Pain Stated Complaint: lower left abdomen pain, nausea Time Seen by Provider: 10/31/24 19:03 Source: patient and family Mode of arrival: ambulatory Limitations: no limitations History of Present Illness HPI narrative: Patient presents with left lower quadrant abdominal pain associated with nausea. He states the pain radiates towards his back, slightly behind the area affected. He denies any peggy higher flank pain. Denies any dysuria, urgency, frequency, hematuria. No penile discharge or penile bleeding. Pain started approximately 1 hour prior to arrival. No vomiting or diarrhea. When asked if this is ever happened before he states not like this.No history of kidney stones. Has seen a cath lab tech for colonoscopy. He states he is due for 1 and receives them every 3 years though unclear why the increased risk/increased frequency. He thought he might be fevers because he feels hot however did not measure it at home and afebrile here. Denies chills. Denies previous abdominal surgeries. Has a primary care physician. Last bowel movement was this morning and denies any constipation or blood. Related Data Home Medications ?Medication ?Instructions ?Recorded ?Confirmed ?Last Taken ?Type phenytoin sodium extended 100 mg 300 mg PO BID 05/10/19 01/22/22 01/21/22 09:00 History capsule aspirin 81 mg tablet,delayed 81 mg PO DAILY 01/21/22 01/21/22 Unknown History release Allergies Allergy/AdvReac Type Severity Reaction Status Date / Time Sulfa (Sulfonamide AdvReac Severe Other Verified 10/31/24 18:42 Antibiotics) [facility] Past Medical History Medical History (Updated 10/31/24 @ 20:09 by Lauren Rivers MD) Tobacco dependence Hypertension Coronary artery disease Patient of Dr. Nikhil Garcia. Foot fracture, right Asthma Hyperlipemia Seizure disorder He has not had a seizure since 1994, but is on long-term Dilantin as he apparently had recurrent seizures when that drug was stopped. Renal malignant neoplasm Status post cryoablation in 2014. Renal cyst, acquired Surgical History Surgical History History of colonoscopy History of removal of cyst Status post incision and drainage Left facial abscess. History of tonsillectomy History of heart artery stent (2013) x 2 in 2013. Family History Family History Sibling Cerebrovascular accident Mother Family history of Alzheimer's disease Sibling Lymphoma Father Hypertension Acute myocardial infarction Grandparent Congestive heart failure Social History Social History (Updated 10/31/24 @ 20:36 by Lauren Rivers MD) Social History: The patient is and lives with his in [place]. They have 2 children. 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 No alcohol or drug abuse. he designates his , Lanie Saleem, as his surrogate decision maker and he wishes to be a full code. 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 Spiritual care concerns: No Agree to blood products: Yes Exam 2 Narrative: GENERAL: Well-appearing, well-nourished, in [id number] acute distress. HEAD: Normocephalic, atraumatic. EYES: Non injected, non icteric ENT: Nares clear, no rhinorrhea or epistaxis. Gross auditory acuity intact. NECK: Supple. No meningismus. CHEST: Speaking in full sentences. No respiratory distress. HEART: Mildly bradycardic rate and rhythm. . ABDOMEN: Soft, nondistended. Mild tenderness to palpation in left lower quadrant. No rigidity or guarding. Not peritoneal Back/: CVA tenderness bilaterally the left greater than right. EXTREMITIES: Normal range of motion. No lower extremity edema. SKIN: Warm, dry, no rash. NEURO: No focal deficits. Alert and oriented. Answering questions. Following commands. Normal speech without aphasia or dysarthria. PSYCH: Normal mood and affect. Course Vital Signs Vital signs: Vital Signs Temperature 98.4 F 10/31/24 18:39 Pulse Rate 59 L 10/31/24 18:39 Respiratory Rate 18 10/31/24 18:39 Blood Pressure 155/85 H 10/31/24 18:39 Pulse Oximetry 96 10/31/24 18:39 Oxygen Delivery Room Air 10/31/24 18:39 Temperature 98.4 F 10/31/24 18:39 Pulse Rate 59 L 10/31/24 18:39 Respiratory Rate 18 10/31/24 18:39 Blood Pressure 155/85 H 10/31/24 18:39 Pulse Oximetry 96 10/31/24 18:39 Oxygen Delivery Room Air 10/31/24 18:39 MDM - Abdominal Pain MDM Narrative Medical decision making narrative: Patient presents with left lower quadrant note abdominal pain associated with nausea and radiating towards his back. In the emergency department he is afebrile with vital signs notable for mild bradycardia at a rate of 59. Blood pressure is acceptable although with hypertension. Dilaudid ordered for pain and ondansetron ordered for nausea. Mild hypokalemia. Patient has a leukocytosis. He has a normocytic anemia that is new compared to prior although those labs were obtained 3 years ago. Urinalysis with hematuria although patient had denied any gross hematuria. I strongly suspect kidney stone. Repletion potassium ordered after the CT results with no acute surgical process patient is desiring something to drink. Pantoprazole ordered given the appearance of esophagitis and gastritis. Discussed patient's workup with him at bedside at approximately 8:20 pm. We discussed expulsion therapy as well as return precautions. Also discussed the incidental findings. Patient verifies understanding. Stable for discharge. He denies history of renal cancer as indicated CT scan but did state that he had a mass removed. He states that he previously saw Dr. Matute. I informed him that I would give him urology follow-up of the person on-call but he could follow-up with whom he chose. He received 1st dose of ketorolac and tamsulosin in the emergency department. He states his pain is much better even before receiving this and he does not have nausea. Differential Diagnosis Differential diagnosis: Likely abdominal pain, calculus of kidney, constipation, diverticulitis and small bowel obstruction Lab Data Attestation: I reviewed the patient's lab results. 10/31/24 18:47 10/31/24 18:47 Labs: Lab Results 10/31/24 Range/Units 18:47 WBC 12.7 H (4.5-10.0) K/mm3 RBC 4.48 L (4.6-6.20) M/mm3 Hgb 13.9 L (14.0-18.0) g/dL Hct 41.4 L (42.0-52.0) % MCV 92.4 (80-100) fl MCH 31.0 (26-34) pg MCHC 33.6 (32-36) g/dl RDW 13.5 (11.5-14.5) % Plt Count 192 (150-375) k/mm3 MPV 9.4 (7.4-10.4) fl Immature Gran % (Auto) 0.5 (0-0.5) % Neut % (Auto) 67.9 (45.5-73.1) % Lymph % (Auto) 21.4 (18.3-44.2) % [place] % (Auto) 7.9 (2.6-8.5) % Eos % (Auto) 1.8 (0-4.4) % Baso % (Auto) 0.5 (0.2-1.2) % Lymph # (Auto) 2.71 (0.9-3.2) K/mm3 [place] # (Auto) 1.0 H (0.1-0.6) K/mm3 Eos # (Auto) 0.2 (0-0.3) K/mm3 Baso # (Auto) 0.1 (0.0-0.1) K/mm3 Abs Immat Gran (auto) 0.06 H (0.00-0.031) K/mm3 Absolute Neuts (auto) 8.6 H (1.3-6.7) K/mm3 Absolute Nucleated RBC 0.000 (0.0-0.012) K/mm3 Nucleated RBC % 0.0 (0.0-0.2) % Sodium 137 (137-145) mmol/L Potassium 3.3 L (3.4-5.0) mmol/L Chloride 103 (98-107) mmol/L Carbon Dioxide 27 (22-30) mmol/L Anion Gap 7 (4-12) mmol/L BUN 16 (9-20) mg/dL Creatinine 1.10 (0.7-1.3) mg/dL Estim Creat Clear Calc 77 ml/min Estimated GFR > 60 (59 - ) Glucose 105 (65-110) mg/dL Calcium 9.9 (8.4-10.2) mg/dL Magnesium 1.9 (1.6-2.3) mg/dL Total Bilirubin 0.2 (0.2-1.3) mg/dL AST 29 (17-59) U/L ALT 34 (6-50) U/L Alkaline Phosphatase 81 (38-126) U/L Total Protein 7.2 (6.3-8.2) g/dL Albumin 4.2 (3.5-5.1) g/dL Lipase 94 (23-300) U/L Urine Color Yellow (Yellow) Urine Appearance Turbid H (Clear) Urine pH 7.0 (5.0-9.0) Ur Specific [place] 1.015 (1.001-1.035) Urine Protein Trace (Negative) mg/dL Urine Glucose (UA) Negative (Negative) mg/dL Urine Ketones Negative (Negative) mg/dL Ur Blood (Man) 3+ H (Negative) Urine Nitrate Negative (Negative) Urine Bilirubin Negative (Negative) Urine Urobilinogen 1.0 (<2.0) mg/dL Leukocyte Esterase Rfl Negative (Negative) BRADLEY/UL Urine RBC >100 H (0-2) /hpf Urine WBC 0-5 (0-3) /hpf Ur Squamous Epith Cells None seen (Few) /hpf Urine Bacteria None seen /hpf Urine Casts 0-2 Imaging Data Attestation: I personally reviewed and interpreted this imaging study as follows: My impression: Left ureteral stone on my independent interpretation of CT abdomen pelvis Radiologist's impression: ITS Impressions Abdomen/Pelvis CT 10/31/24 19:38 IMPRESSION: Mild esophagitis and antral gastritis. 9 mm right middle lobe pulmonary nodule, new since the most recent comparison of 2019. Consider nonemergent but timely low-dose noncontrast CT of the chest follow-up in 3 months, PET/CT, or biopsy. 4 mm stone in the mid left ureter causing mild objective uropathy. Multiple indeterminate density lateral renal lesions that have increased slightly in size since the comparison study, given the personal history of renal cancer, recommend nonemergent but timely renal protocol MR or CT without and with contrast. Discharge Plan Discharge Clinical Impression: Acute left lower quadrant pain, Nausea, Hypokalemia, Leukocytosis, Normocytic anemia, Hematuria, Esophagitis with gastritis, Right middle lobe pulmonary nodule, Left ureteral stone, Renal lesion Patient Disposition: Home Condition: Stable Instructions: Antibiotic Form, Gastritis (ED), Hypokalemia (ED), Acute Nausea and Vomiting (ED), Hematuria (ED), How to Strain Your Urine (ED), Anemia (ED), Pulmonary Nodules (ED), Esophagitis (ED), Ureteral Stones (ED) Additional Instructions: As we discussed, you have a stone in your ureter. It should pass on its own with the assistance of expulsion therapy medications. The oral disintegrating tablets of Zofran can help with the nausea. Strain your urine and follow-up with Urology, either Dr Matute whom you have seen before or the name of urologist listed below. 9 mm right middle lobe pulmonary nodule, new since the most recent comparison of 2019. Consider nonemergent but timely low-dose noncontrast CT of the chest follow-up in 3 months, PET/CT, or biopsy. Also Multiple indeterminate density lateral renal lesions that have increased slightly in size since the comparison study, recommend nonemergent but timely renal protocol MR or CT without and with contrast. Your primary care physician can help arrange these. You also had evidence of esophagitis/gastritis on your CT scan. The omeprazole can help with this. Return to the emergency department any new or worsening symptoms such as fever greater than 100.4? F, intractable nausea/vomiting, intractable pain. Patient Language: Icelandic Prescriptions: New omeprazole 20 mg tablet,delayed release (DR/EC) 20 mg PO DAILY Qty: 14 0RF ketorolac 10 mg tablet 10 mg PO Q8H PRN (Reason: pain) 5 Days Qty: 14 0RF Rx Instructions: maximum total duration of 5 days from all oral, intranasal, or parenteral formulations; received first dose in ED tamsulosin 0.4 mg capsule 0.4 mg PO DAILY Qty: 12 0RF ondansetron 4 mg tablet,disintegrating 4 mg PO Q8H PRN (Reason: nausea and vomiting) Qty: 7 0RF No Action phenytoin sodium extended 100 mg capsule 300 mg PO BID aspirin 81 mg Tablet,Delayed Release (Dr/Ec) 81 mg PO DAILY metoprolol succinate [Toprol XL] 50 mg tablet extended release 24 hr 50 mg PO DAILY 30 Days Qty: 30 0RF amlodipine 5 mg tablet 5 mg PO DAILY 30 Days Qty: 30 0RF rosuvastatin 20 mg tablet 20 mg PO HS 30 Days Qty: 30 0RF nitroglycerin 0.3 mg tablet, sublingual 0.3 mg sublingual Q5-15M PRN (Reason: chest pain) Qty: 30 0RF Rx Instructions: do not exceed 3 doses per episode telmisartan 40 mg tablet 40 mg PO DAILY Qty: 90 1RF Follow-up/Referrals: Viridiana Moore MD [Primary Care Provider] - Reanna Montanez MD [Physician] - Theodore Matute MD [Physician] - Time of Disposition: 20:33
[2024-10-31 19:09] LABS: Alanine Aminotransferase 34 U/L (6-50); Albumin Level 4.2 g/dL (3.5-5.1); Alkaline Phosphatase 81 U/L (38-126); Anion Gap 7 mmol/L (4-12); Aspartate Amino Transferase 29 U/L (17-59); Bilirubin,Total 0.2 mg/dL (0.2-1.3); Blood Urea Nitrogen 16 mg/dL (9-20); Calcium 9.9 mg/dL (8.4-10.2); Carbon Dioxide 27 mmol/L (22-30); Chloride 103 mmol/L (98-107); Estimated CRCL calculation 77 ml/min; Estimated Glomerular Filt Rate > 60; Glucose 105 mg/dL (65-110); Lipase 94 U/L (23-300); Potassium 3.3 mmol/L (3.4-5.0); Sodium 137 mmol/L (137-145); Total Protein 7.2 g/dL (6.3-8.2)
[2024-10-31] MEDS: ONDANSETRON INJ 4 MG/2 ML VIAL IV PUSH (19:15)
[2024-10-31] MEDS: MORPHINE SULFATE (*CRX) 4 MG/ML INJ IV PUSH (19:16)
--- NOTE | 2024-10-31 19:23 | PC.NURSE ---
Received report from JOSEF Chen for cont. of care. Pt lying on stretcher respirations even and unlabored. Pt c/o 10/10 cramping abdominal pain, and nausea. Refer to MAR for medication administration. Pt being taken to CT at this time by tahmina in stretcher.
[2024-10-31 19:34] LABS: Magnesium 1.9 mg/dL (1.6-2.3)
[2024-10-31] MEDS: HYDROmorphone HCL INJ (*CRX) 2 MG/ML VIAL 1 MG IV PUSH (19:51)
[2024-10-31] MEDS: TAMSULOSIN HCL 0.4 MG CAPSULE PO (20:44)
[2024-10-31] MEDS: POTASSIUM BICARBONATE 25 MEQ TABEF PO (20:46)
[2024-10-31] MEDS: KETOROLAC 15 MG/ML VIAL (*BKC) IV PUSH (20:47)
[2024-10-31] MEDS: PANTOPRAZOLE 40 MG TABLET PO (20:52)
[2024-10-31 21:06] VITALS: BP 146/80; PULSE 62; RESP 13; O2SAT 96
== END 2024-10-31 21:09 | disposition home or self-care (01) ==
PROVIDERS: Student in an Organized Health Care Education/Training Program; Emergency Provider Student in an Organized Health Care Education/Training Program; PCP Family Medicine
DX: N13.9 Obstructive and reflux uropathy, unspecified (principal); N20.1 Calculus of ureter; K20.90 Esophagitis, unspecified without bleeding; K29.70 Gastritis, unspecified, without bleeding; D64.9 Anemia, unspecified; R91.1 Solitary pulmonary nodule; N28.9 Disorder of kidney and ureter, unspecified; D72.829 Elevated white blood cell count, unspecified; E87.6 Hypokalemia; R31.9 Hematuria, unspecified; I10 Essential (primary) hypertension; I25.10 Atherosclerotic heart disease of native coronary artery without angina pectoris; G40.909 Epilepsy, unspecified, not intractable, without status epilepticus; J45.909 Unspecified asthma, uncomplicated; E78.5 Hyperlipidemia, unspecified; F17.210 Nicotine dependence, cigarettes, uncomplicated; Z85.528 Personal history of other malignant neoplasm of kidney; Z95.5 Presence of coronary angioplasty implant and graft; Z79.899 Other long term (current) drug therapy
CPT/HCPCS: 36415; 74177; 80053; 81001; 83690; 83735; 85025; 96374; 96375; 99284; A9270; J1171; J1885; J2270; J2405; Q9967

== ENCOUNTER 2024-11-24 14:30 | Outpatient (CLI) | payer OTHER, SELFPAY ==
--- NOTE | ~2024-11-24 | MR_ITS ---
EXAMINATION: MR renal wo/w con DATE: 11/24/2024 16:00 INDICATION: Malignant neoplasm of unspecified kidney. TECHNIQUE: Magnetic resonance imaging (MRI) of the abdomen was performed without and with 20 mL Multi yolis intravenous contrast. Sequences included coronal T2-weighted SS-FSE, coronal and axial FS 2D-F IESTA, axial STIR FSE, axial T2-weighted SS-FSE, axial T2-weighted FS SS-FSE, axial diffusion-weighte d SE, axial dual-echo T1-weighted FSPGR, and axial and coronal T1-weighted LAVA. Postcontrast axial T 1-weighted LAVA images were obtained in a time course. Postcontrast coronal T1-weighted LAVA images w ere obtained. COMPARISON: CT dated 10/31/2024 FINDINGS: Arch size is normal. No pericardial or pleural effusion. Couple subcentimeter T2 hyperintense nonenha ncing hepatic cysts. Focal adenomyomatosis at the fundus of the gallbladder. Likely benign <3 mm enha ncing polyp along the nondependent wall of the otherwise normal-appearing gallbladder. No intra or ex trahepatic biliary ductal dilation. Spleen, pancreas and bilateral adrenal glands are normal. There a re multiple bilateral nonenhancing renal cysts measuring up to 2.5 cm in maximal diameter at the left kidney. These include nonenhancing complex proteinaceous/hemorrhagic cysts with high T1 and low T2 s ignal at the upper pole of the right kidney and a couple in both the left and right kidneys demonstra ting minimally increased T1 and minimally decreased T2 signal relative to simple fluid. These corresp ond to the indeterminate intermediate attenuation lesions identified on the prior CT. No abnormally e nhancing brain lesions to suggest malignancy. Persistent mild left hydroureteronephrosis now extendin g caudally to the distalmost visualized ureter which is near the ureterovesicular junction. The stone previously seen in the mid ureter is not visualized and has likely advanced beyond the field of imag ing. Visualized portions of bowels are unremarkable. No pathologically enlarged abdominal or upper pe lvic lymphadenopathy. Mild S-shaped thoracolumbar scoliosis with moderate spondylosis. Normal bone ma rrow signal throughout. IMPRESSION: 1. Multiple bilateral renal cysts including a nonenhancing proteinaceous/hemorrhagic cyst which corre spond to the indeterminate lesions of concern on prior CT. No enhancing renal neoplasm identified. 2. Persistent mild left hydronephrosis now extending throughout the visualized portions of the distal left ureter suggesting advancement of the 4 mm obstructing stone previously noted in the mid left ur eter on the prior CT, now likely at the nonvisualized left ureterovesicular junction. 3. Likely benign 2-3 mm gallbladder polyp and focal adenomyomatosis at the fundus of the gallbladder. Reviewed, dictated and finalized at location A. IMPRESSION: 1. Multiple bilateral renal cysts including a nonenhancing proteinaceous/hemorr hagic cyst which correspond to the indeterminate lesions of concern on prior CT . No enhancing renal neoplasm identified. 2. Persistent mild left hydronephrosis now extending throughout the visualized portions of the distal left ureter suggesting advancement of the 4 mm obstructi ng stone previously noted in the mid left ureter on the prior CT, now likely at the nonvisualized left ureterovesicular junction. 3. Likely benign 2-3 mm gallbladder polyp and focal adenomyomatosis at the fund us of the gallbladder.
--- OUTSIDE RECORDS SUMMARY | 2024-11-24 14:43 | XMS_ITS | Clinical Summary ---
Author Organization [facility] Address [address] [place] [address] Care Team Providers Care Site Inspector Name Role Phone Eamon Soliman Primary Care Provider [phone] Allergies Active Allergy Reactions Criticality Noted Date Comments Sulfa (Sulfonamide Antibiotics) Shortness of breath High 02/04/2019 Medications gwyqklsk-vbu-KV-ly copen-lutein (CENTRUM SILVER ULTRA MEN'S) 300-600-300 mcg tablet take 1 tablet by oral route every day 0 0 4 Active aspirin (ASPIRIN LOW DOSE) 81 mg tablet take 1 Tablet by oral route every day 0 0 4 Active nitroglycerin (NITROSTAT) 0.[address] 1 tablet (0.3 mg total) under the tongue every 5 (five) minutes as needed for chest pain (May repeat one tablet every 5 minutes, up to 3 tablets in 15 minutes.) 90 tablet 2 4 Active metoprolol XL (TOPROL-XL) 50 mg extended release tabletIndications: Coronary artery disease of northway artery of northway heart with stable angina pectoris TAKE 1 TABLET BY MOUTH EVERY DAY 90 tablet 2 5 Active amLODIPine (NORVASC) 5 mg tabletIndications: Coronary artery disease of northway artery of northway heart with stable angina pectoris TAKE 1 TABLET (5 MG TOTAL) BY MOUTH DAILY. 90 tablet 2 5 Active rosuvastatin (CRESTOR) 20 mg tabletIndications: Coronary artery disease of northway artery of northway heart with stable angina pectoris TAKE 1 TABLET BY MOUTH EVERY DAY AT NIGHT 90 tablet 2 5 Active phenytoin ER (DILANTIN) 100 mg ER capsuleIndications :Complex partial epilepsy with generalization (HCC) Take 3 capsules (300 mg total) by mouth 2 (two) times a day 540 capsule 5 025 Active phenytoin ER (DILANTIN) 100 mg ER capsuleIndications :Complex partial epilepsy with generalization (HCC) Take 3 capsules (300 mg total) by mouth 2 (two) times a day 540 capsule 3 4 025 Discontin ued(Reord er) Active Problems Problem Noted Date Diagnosed Date Complex partial epilepsy with generalization Assessment & Plan (08/28/2020 8:40 AM CDT): Patient's history complex partial seizure secondary generalization formally managed [facility]. Since last being seen a year ago he continues on phenytoin 300 mg b.i.d. with no tolerability issues in no reported seizures. I have renewed his phenytoin 300 mg b.i.d. as previously prescribed. I will see him back in 1 year. Medication monitoring encounter 08/28/2020 Assessment & Plan (08/28/2020 8:41 AM CDT): I will obtain a phenytoin level, AST, and ALT for medication level monitoring as well as surveillance screening of potential liver dysfunction associated with continued phenytoin usage. S/P coronary artery stent placement 12/24/2016 Coronary artery disease invo lving northway coronary artery of northway heart without angina pectoris 04/07/2014 Overview (08/10/2016): Coronary arteriosclerosis in northway artery Encounters Date Type Department Care Team Description 10/26/2024 Telephone [facility] Neurology [facility] [address] [place] [phone] Prateek Woody Si, MD Med Refill from Last 3 Months Surgical History Surgery Date Site/Laterality Comments US GUIDED BIOPSY RENAL 06/06/2016 N/A CARDIAC STENT PLACEMENT Medical History Medical History Date Comments Chest pain Hypertension Seizures (HCC) Family History Medical History Relation Name Comments Heart attack Maternal Grandfather Pop Myocard ial infarction; Alzheimer's disease Mother Oumou Heart attack Paternal Grandfather Pop Myocard ial infarction; Relation Name Status Comments Father Alive Maternal Grandfather Pop Mother Oumou (Age 80) Paternal Grandfather Pop Social History Tobacco Use Types Packs/Day Years Used Date Smoking Tobacco: Every Day Cigarettes Smokeless Tobacco: Never Tobacco Cessation:Ready to Q uit: Not Asked; Counseling Given: Not Answered Alcohol Use Standard Drinks/Week Comments No 0 (1 standard drink = 0.6 oz pur e alcohol) Sex and Gender Information Value Date Recorded Sex Assigned at Not on file 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 Gender Identity Male 05/08/2021 3:34 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 Sexual Orientation Straight 05/08/2021 3: 34 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 Obstetrics History Last Filed Vital Signs Vital Sign Reading Time Taken Comments Blood Pressure 158/98 07/30/2024 9:07 AM CDT Pulse 72 07/30/2024 9:07 AM CDT Temperature 36.8 C (98.3 F) 02/01/2022 8:16 AM CDT Respiratory Rate 12 12/24/2016 10:26 AM CDT Oxygen Saturation 97% 07/30/2024 9:07 AM CDT Inhaled Oxygen Concentration - - Weight 108.9 kg (240 lb) 07/30/2024 9:07 AM CDT Height 182.9 cm (6') 07/30/2024 9:07 AM CDT Body Mass Index 32.55 07/30/2024 9:07 AM CDT Plan of Treatment Health Maintenance Due Date Last Done Comments Colon Cancer Screening-Colonoscopy 1960 Depression Screening 1960 Hepatitis C Screening 1960 Prostate Cancer Screening-PSA 1960 Hepatitis B Screening 1978 Regular Well Visit/Exam 18-64 1978 Pneumococcal vaccine <65 (1 of 2 - PCV) 10/05/1979 Zoster Vaccine (1 of 2) 2010 Influenza Vaccine (#1) 2025 DTaP/Tdap/Td Vaccine (3 - Td or Tdap) 07/27/2028, 02/21/2009 Insurance [facility] CHOICE PLUS [facility] [place] [id number] [facility] CHOICE PLUS [facility] [employer] Care Teams Site Inspector Relationship Specialty Start Date End Date Eamon Soliman, KRISTINA [address] [place] [address] PCP - General Physician Bank Boss 09/14/20
--- OUTSIDE RECORDS SUMMARY | 2024-11-24 14:43 | XMS_ITS | Referral Summary ---
Author Organization [facility] Address [address] [place] [address] Care Team Providers Care Quality Assurance Supervisor Final Name Role Phone Eamon Soliman Primary Care Provider [phone] Encounters Date Type Department Care Team Description 10/26/2024 Telephone [facility] Medical Group Neurology [address] [place] [phone] Prateek Woody Si, MD Med Refill from Last 3 Months Allergies Active Allergy Reactions Criticality Noted Date Comments Sulfa (Sulfonamide Antibiotics) Shortness of breath High 02/04/2019 Medications shndmmtj-huh-YV-ly copen-lutein (CENTRUM SILVER ULTRA MEN'S) 300-600-300 mcg [...] extended release tabletIndications: Coronary artery disease of ambler artery of ambler heart with stable angina pectoris TAKE 1 TABLET BY MOUTH EVERY DAY 90 tablet 2 5 Active amLODIPine (NORVASC) 5 mg tabletIndications: Coronary artery disease of ambler artery of ambler heart with stable angina pectoris TAKE 1 TABLET (5 MG TOTAL) BY MOUTH DAILY. 90 tablet 2 5 Active rosuvastatin (CRESTOR) 20 mg tabletIndications: Coronary artery disease of ambler artery of ambler heart with stable angina pectoris TAKE 1 [...] complex partial seizure secondary generalization formally managed [facility]. 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 Gender Identity Male 05/08/2021 3:34 PM 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 Sexual Orientation Straight 05/08/2021 3: 34 PM 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 OFFICER Last Filed Vital Signs Vital Sign Reading [...] 07/30/2024 9:07 AM CDT Plan of Treatment Not on file Insurance [id number] CHOICE PLUS [facility] HMO/PPO Address: [facility] [address] [place] [address] [id number] [place] [address] CHOICE PLUS [facility] HMO/PPO Address: [address] [address] [place] [address] [facility] [employer] Care Teams Quality Assurance Supervisor Final Relationship Specialty Start Date End Date Eamon Soliman PA [address] [place] [address] PCP - General Physician Rn Transport 09/14/20
== END 2024-11-24 14:31 | disposition home or self-care (01) ==
PROVIDERS: PCP Family Medicine; Visit Provider Family Medicine
DX: R93.5 Abnormal findings on diagnostic imaging of other abdominal regions, including retroperitoneum (principal); C64.9 Malignant neoplasm of unspecified kidney, except renal pelvis; N28.1 Cyst of kidney, acquired; N13.2 Hydronephrosis with renal and ureteral calculous obstruction; K82.4 Cholesterolosis of gallbladder; K82.8 Other specified diseases of gallbladder
CPT/HCPCS: 74183; A9577

== ENCOUNTER 2024-11-25 17:05 | Observation (INO) | payer OTHER, SELFPAY ==
--- NOTE | ~2024-11-25 | XR_ITS ---
INTRAOPERATIVE FLUOROSCOPY: CLINICAL HISTORY: 64 years old Male; LEFT RETRO/STENT PROCEDURE COMMENTS: Limited intraoperative fluoroscopy of the retroperitoneum and pelvis was performe d. CUMULATIVE DOSE: 10.8 mGy FLUOROSCOPY TIME: 21.5 seconds FINDINGS/IMPRESSION: Please refer to operative note for further details. Reviewed, dictated and finalized at location A.
--- NOTE | ~2024-11-25 | CT_ITS ---
EXAMINATION: CT abdomen pelvis wo con DATE: 11/25/2024 17:36 INDICATION: Abdominal pain and flank pain. Nephrolithiasis. TECHNIQUE: Computed tomography (CT) of the abdomen and pelvis was performed without intravenous contr ast. Automated exposure control and iterative reconstruction technique were employed. The dose-length product was 379.81 mGy-cm. COMPARISON: CT dated 10/31/2024 and MRI dated 11/24/2024 FINDINGS: Centrally calcified right middle lobe nodule consistent with old granulomatous disease. Heart size is normal. Atherosclerotic coronary artery calcific location. No pericardial or pleural effusion. Subce ntimeter low-attenuation hepatic cyst. Gallbladder, spleen, pancreas and bilateral adrenal glands are normal. Again seen are few bilateral simple and complex attenuation proteinaceous/hemorrhagic cysts, the largest simple cyst measuring 2.3 cm pole the right kidney and the largest complex cyst measurin g 1.7 similar at the upper pole the right kidney. There is persistent mild left hydroureteronephrosis extending to a 4 mm stone previously seen in the mid left ureter which has advanced now at the left ureterovesicular junction. Bowels including the appendix are normal. Prostatomegaly measuring 5.0 x 3 .8 cm. No free intraperitoneal gas or fluid. Small bilateral fat-containing inguinal hernias. No path ologically enlarged abdominal or pelvic lymphadenopathy. Severe spondylosis of the lumbosacral juncti on with mild to moderate spondylosis and more cephalad lumbar and lower thoracic spine. Chronic T8 co mpression fracture with one third anterior vertebral body height loss. Left acetabular sclerotic bone island. IMPRESSION: 1. Advancement of a 4 mm left ureteral stone now at the ureterovesicular junction with persistent mil d left hydroureteronephrosis. Reviewed, dictated and finalized at location A. IMPRESSION: 1. Advancement of a 4 mm left ureteral stone now at the ureterovesicular juncti on with persistent mild left hydroureteronephrosis.
[2024-11-25 17:08] VITALS: BP 155/99; PULSE 74; RESP 18; O2SAT 97
--- OUTSIDE RECORDS SUMMARY | 2024-11-25 17:08 | XMS_ITS | Referral Summary ---
Author Organization [facility] Address [address] [place] [address] Care Team Providers Care Cnc Lathe Machine Operator Name Role Phone Eamon Soliman Primary Care Provider [phone] Encounters Date Type Department Care Team Description 10/26/[address] [facility] Neurology [address] [place] [phone] Prateek Woody Si, MD Med Refill from Last 3 Months Allergies Active Allergy Reactions Criticality Noted Date Comments Sulfa (Sulfonamide Antibiotics) Shortness of breath High 02/04/2019 Medications [id number]-[id number]-lyc open-lutein (CENTRUM SILVER ULTRA MEN'S) 300-600-300 mcg tablet [...] metoprolol XL (TOPROL-XL) 50 mg extended release tabletIndications:C oronary artery disease of [place] artery of [place] heart with stable angina pectoris TAKE 1 TABLET BY MOUTH EVERY DAY 90 tablet 2 5 Active amLODIPine (NORVASC) 5 mg tabletIndications:C oronary artery disease of [place] artery of [place] heart with stable angina pectoris TAKE 1 TABLET (5 MG TOTAL) BY MOUTH DAILY. 90 tablet 2 5 Active rosuvastatin (CRESTOR) 20 mg tabletIndications:C oronary artery disease of [place] artery of [place] heart with stable angina pectoris TAKE 1 TABLET BY MOUTH EVERY DAY AT NIGHT 90 tablet 2 5 Active phenytoin ER (DILANTIN) 100 mg ER capsuleIndications: Complex partial epilepsy with generalization (HCC) Take 3 capsules (300 mg total) by mouth 2 (two) times a day 540 capsule 5 01/25/20 25 Active Active Problems Problem Noted Date Diagnosed Date Complex partial epilepsy with generalization Assessment & Plan (08/28/2020 8:40 AM CDT): Patient's history complex partial seizure secondary generalization formally managed [facility]. Since last being seen a year [...] placement 12/24/2016 Coronary artery disease invo lving [place] coronary artery of [place] heart without angina pectoris 04/07/2014 Overview (08/10/2016): Coronary arteriosclerosis in [place] artery Social History Tobacco Use Types Packs/Day Years Used Date Smoking Tobacco: Every Day Cigarettes Smokeless Tobacco: Never Tobacco Cessation:Ready to Q uit: Not Asked; Counseling Given: Not Answered Alcohol Use Standard Drinks/Week Comments No 0 (1 standard drink = 0.6 oz pur e alcohol) Sex and Gender Information Value Date Recorded Sex Assigned at Not on file Legal Sex Male 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 [employer] Care Teams Cnc Lathe Machine Operator Relationship Specialty Start Date End Date Eamon Soliman PA [address] [place] [address] PCP - General Physician Welding Machine Feeder 09/14/20
--- OUTSIDE RECORDS SUMMARY | 2024-11-25 17:08 | XMS_ITS | Clinical Summary ---
Author Organization [facility] Address [address] [place] [address] Care Team Providers Care Residential Child Care Counselor Name Role Phone Eamon Soliman Primary Care Provider [phone] Allergies Active Allergy Reactions Criticality Noted Date Comments Sulfa (Sulfonamide Antibiotics) Shortness of breath High 02/04/2019 Medications [id number]-wqr-IX-lyc open-lutein (CENTRUM SILVER ULTRA MEN'S) 300-600-300 mcg [...] extended release tabletIndications:C oronary artery disease of [place] artery of [place] heart with stable angina pectoris TAKE 1 TABLET BY MOUTH EVERY DAY 90 tablet 2 5 Active amLODIPine (NORVASC) 5 mg tabletIndications:C oronary artery disease of [place] artery of [place] heart with stable angina pectoris TAKE 1 TABLET (5 MG TOTAL) BY MOUTH DAILY. 90 tablet 2 5 Active rosuvastatin (CRESTOR) 20 mg tabletIndications:C oronary artery disease of [place] artery of [place] heart with stable angina pectoris TAKE 1 [...] complex partial seizure secondary generalization formally managed [facility]. 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 Gender Identity Male 05/08/2021 3:34 PM PETROLEUM INSPECTOR SUPERVISOR Sexual Orientation Straight 05/08/2021 3: 34 PM PETROLEUM INSPECTOR SUPERVISOR Obstetrics History Last Filed Vital Signs Vital [...] - Td or Tdap) 07/27/2028, 02/21/2009 Insurance [facility] CHOICE PLUS [facility] HMO/PPO Address: [place] [address] [facility] CHOICE PLUS [facility]/PPO Address: [address] [place] [address] [facility] Care Teams Residential Child Care Counselor Relationship Specialty Start Date End Date Eamon Soliman PA [address] [place], [place] [id number] PCP - General Physician Hydrotel Operator 09/14/20
--- NOTE | 2024-11-25 17:14 | ED_ITS ---
HPI - Abdominal Pain General Chief Complaint: Abdominal Pain <Ania Arneas PA-C - Last Filed: 11/26/24 17:42> Stated Complaint: abdominal pain-history of kidney stones <Ania Arenas PA-C - Last Filed: 11/26/24 17:42> Time Seen by Provider: 11/25/24 17:14 <Ania Arenas PA-C - Last Filed: 11/26/24 17:42> Focused HPI: This is a 64 year old male that presents to the ER for left lower abdominal pain. Ongoing over the last couple of hours. Reports history of kidney stones. GENERAL: Uncomfortable, well-nourished, and in no acute distress. HEAD: Normocephalic, atraumatic. CHEST: Clear to auscultation. ?No respiratory distress. HEART: Regular rate and rhythm.? NEURO: ?Alert and oriented x3. Patient screened in triage and initial orders placed.? ?Additional care and disposition to be based upon?diagnostic testing and treatment. <Ania Arenas PA-C - Last Filed: 11/26/24 17:42> History of Present Illness HPI narrative: Agree with the above with the following additions/corrections: Patient presents with left lower quadrant abdominal pain. He has a history of kidney stones and states that this feels the same. Of note, patient was diagnosed with a mid ureteral stone at the end of October. He states that he is continue to experience pain nearly daily. He finished his course of tamsulosin as well as analgesic medication. He states he thought briefly that he might have passed the stone given that he had a few days of relief but in general continues to experience symptoms regularly. His last bowel movement was this morning and reportedly somewhat small. Denies any bloody stools, nausea, vomiting. He has been having chills and will become intermittently diaphoretic but denies any fevers. He has been having dysuria as well as urgency and frequency but denies any gross hematuria.. Previously followed with Urology, and initially Dr. Jd Blanco followed by Dr. Robles and then through [facility] given concern for malignancy/mass. <Lauren Rivers MD - Last Filed: 11/25/24 19:40> Related Data Home Medications: Home Medications ?Medication ?Instructions ?Recorded ?Confirmed ?Last Taken ?Type phenytoin sodium extended 100 mg 300 mg PO BID 05/10/19 11/25/24 11/25/24 09:00 History capsule aspirin 81 mg tablet,delayed 81 mg PO DAILY 01/21/22 11/25/24 11/24/24 22:00 History release docusate sodium 100 mg tablet 100 mg PO DAILY stool softner 11/25/24 11/25/24 11/24/24 History loratadine 10 mg tablet (Allergy 10 mg PO DAILY allergy relief 11/25/24 11/25/24 11/25/24 21:00 History Relief (loratadine)) <Ania Arenas PA-C - Last Filed: 11/26/24 17:42> Allergies/Adverse Reactions: Allergies Allergy/AdvReac Type Severity Reaction Status Date / Time Sulfa (Sulfonamide AdvReac Severe Other Verified 11/26/24 13:03 Antibiotics) <Ania Arenas PA-C - Last Filed: 11/26/24 17:42> Review of Systems 2 Review of Systems: All systems reviewed & are unremarkable except as noted in HPI and below <Ania Arenas PA-C - Last Filed: 11/26/24 17:42> [facility] Past Medical History Medical History: Medical History Tobacco dependence Hypertension Coronary artery disease Patient of Dr. Nikhil Garcia. Foot fracture, right Asthma Hyperlipemia Seizure disorder He has not had a seizure since 1994, but is on long-term Dilantin as he apparently had recurrent seizures when that drug was stopped. Renal malignant neoplasm Status post cryoablation in 2014. Renal cyst, acquired <Ania Arenas PA-C - Last Filed: 11/26/24 17:42> Surgical History Surgical History: Surgical History History of colonoscopy History of removal of cyst Status post incision and drainage Left facial abscess. History of tonsillectomy History of heart artery stent (2013) x 2 in 2014. <Ania Arenas PA-C - Last Filed: 11/26/24 17:42> Family History Family History: Family History Sibling Cerebrovascular accident Mother Family history of Alzheimer's disease Sibling Lymphoma Father Hypertension Acute myocardial infarction Grandparent Congestive heart failure <Ania Arenas PA-C - Last Filed: 11/26/24 17:42> Social History Social History: Social History Social History: The patient is and lives with his in [place]. They have 2 children. 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 No alcohol or drug abuse. he designates his , Lanie Saleem, as his surrogate decision maker and he wishes to be a full code. Smoking packs per day: 0.5 Smoking cigarettes per day: 10.0 Smoking status: Former smoker Tobacco type: cigarettes Second hand tobacco smoke exposure: Yes Smoking end date: 06/05/24 Alcohol intake: current Substance use: never Do You Feel Safe in your Home?: Yes Lack of Transportation: No Lack of Food: Never True Current Housing: I Have Housing Concerned About Future Housing: No Difficulty Paying Gas/Electric Bills: No Difficulty Paying for Meds: No Currently Unemployed: No Education: High School Diploma/GED Difficulty w/ Childcare or Family Care: No Living arrangements: with family Occupation/Education: retired Additional occupation/education comments: watches his grandchildren; 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 Spiritual care concerns: No Agree to blood products: Yes <Ania Arenas PA-C - Last Filed: 11/26/24 17:42> Exam 2 Narrative: GENERAL: Well-appearing, well-nourished, in mild acute distress. HEAD: Normocephalic, atraumatic. EYES: Non injected, non icteric ENT: Nares clear, no rhinorrhea or epistaxis. Gross auditory acuity intact. NECK: Supple. No meningismus. CHEST: Speaking in full sentences. No respiratory distress. HEART: Regular rate and rhythm. . ABDOMEN: Soft, nondistended. EXTREMITIES: Normal range of motion. No lower extremity edema. SKIN: Warm, dry, no rash. NEURO: No focal deficits. Alert and oriented. Answering questions. Following commands. Normal speech without aphasia or dysarthria. PSYCH: Normal mood and affect. <Lauren Rivers MD - Last Filed: 11/25/24 19:40> Course Vital Signs Vital signs: Vital Signs Pulse Rate 74 11/25/24 17:08 Respiratory Rate 18 11/25/24 17:08 Blood Pressure 155/99 H 11/25/24 17:08 Pulse Oximetry 97 11/25/24 17:08 Oxygen Delivery Room Air 11/25/24 17:08 Temperature 97.8 F 11/26/24 15:30 Pulse Rate 55 L 11/26/24 15:30 Respiratory Rate 16 11/26/24 15:30 Blood Pressure 178/94 H 11/26/24 15:30 Pulse Oximetry 100 11/26/24 15:30 Oxygen Delivery Room Air 11/26/24 14:45 Oxygen Flow Rate 10 11/26/24 14:00 <Ania Arenas PA-C - Last Filed: 11/26/24 17:42> Vital Signs Pulse Rate 74 11/25/24 17:08 Respiratory Rate 18 11/25/24 17:08 Blood Pressure 155/99 H 11/25/24 17:08 Pulse Oximetry 97 11/25/24 17:08 Oxygen Delivery Room Air 11/25/24 17:08 Temperature 97.8 F 11/26/24 15:30 Pulse Rate 55 L 11/26/24 15:30 Respiratory Rate 16 11/26/24 15:30 Blood Pressure 178/94 H 11/26/24 15:30 Pulse Oximetry 100 11/26/24 15:30 Oxygen Delivery Room Air 11/26/24 14:45 Oxygen Flow Rate 10 11/26/24 14:00 <Lauren Rivers MD - Last Filed: 11/25/24 19:40> MDM - Abdominal Pain MDM Narrative Medical decision making narrative: 64-year-old male presents with left lower quadrant abdominal pain. Pain became more severe approximately 2 hours prior to arrival although patient reports that he has injuries been experiencing pain nearly daily since the end of October. On 10/31/2024 he was seen in this emergency department and diagnosed with a mid ureteral stone. He has finished his course of tamsulosin and analgesic medication. He thought perhaps he had passed the stone given that he experienced a few days of relief but that this has recurred. In the emergency department he is afebrile with vital signs notable for hypertension. Mild leukocytosis. Urinalysis with hematuria. From triage a CT non con was ordered in addition to ketorolac which patient received prior to my assessment. Dilaudid ordered for pain. CT shows that there has been some but minimal movement of the stone as it is now at the left UVJ. Discussed with on-call urologist Dr. Lozoya who notes that it is reasonable for either patient to stay and be admitted overnight and to have intervention performed tomorrow verses, if patient would prefer, to be discharged with close urology follow-up in clinic and to have procedure within the week. Options are presented to the patient who does feel that because he has been dealing with symptoms for the past month, he would prefer at this time to be admitted overnight and have this dealt with tomorrow. This is reasonable. Otherwise without JENNIFER, afebrile, urine not infected. Discussed with on-call hospitalist Dr Flores who accepts admission. Patient will be NPO at midnight. PRNs will be ordered for pain and, necessary antiemetics. <Lauren Rivers MD - Last Filed: 11/25/24 19:40> Differential Diagnosis Differential diagnosis: Likely abdominal pain, calculus of kidney, constipation, diverticulitis and small bowel obstruction <Lauren Rivers MD - Last Filed: 11/25/24 19:40> Medical Records Medical records narrative: Abdomen/Pelvis CT 10/31/24 19:38 IMPRESSION: Mild esophagitis and antral gastritis. 9 mm right middle lobe pulmonary nodule, new since the most recent comparison of 2019. Consider nonemergent but timely low-dose noncontrast CT of the chest follow-up in 3 months, PET/CT, or biopsy. 4 mm stone in the mid left ureter causing mild objective uropathy. Multiple indeterminate density lateral renal lesions that have increased slightly in size since the comparison study, given the personal history of renal cancer, recommend nonemergent but timely renal protocol MR or CT without and with contrast. <Lauren Rivers MD - Last Filed: 11/25/24 19:40> Lab Data Attestation: I reviewed the patient's lab results. <Lauren Rivers MD - Last Filed: 11/25/24 19:40> Result diagrams: 11/26/24 06:19 11/26/24 06:19 <Ania Arenas PA-C - Last Filed: 11/26/24 17:42> Labs: Lab Results 11/25/24 11/25/24 11/25/24 Range/Units 18:32 18:41 18:59 WBC 11.1 H (4.5-10.0) K/mm3 RBC 4.50 L (4.6-6.20) M/mm3 Hgb 14.1 (14.0-18.0) g/dL Hct 41.9 L (42.0-52.0) % MCV 93.1 (80-100) fl MCH 31.3 (26-34) pg MCHC 33.7 (32-36) g/dl RDW 14.1 (11.5-14.5) % Plt Count 196 (150-375) k/mm3 MPV 9.3 (7.4-10.4) fl Immature Gran % (Auto) 0.3 (0-0.5) % Neut % (Auto) 56.6 (45.5-73.1) % Lymph % (Auto) 30.1 (18.3-44.2) % [place] % (Auto) 9.4 H (2.6-8.5) % Eos % (Auto) 3.1 (0-4.4) % Baso % (Auto) 0.5 (0.2-1.2) % Lymph # (Auto) 3.34 H (0.9-3.2) K/mm3 [place] # (Auto) 1.0 H (0.1-0.6) K/mm3 Eos # (Auto) 0.3 (0-0.3) K/mm3 Baso # (Auto) 0.1 (0.0-0.1) K/mm3 Abs Immat Gran (auto) 0.03 (0.00-0.031) K/mm3 Absolute Neuts (auto) 6.3 (1.3-6.7) K/mm3 Absolute Nucleated RBC 0.000 (0.0-0.012) K/mm3 Nucleated RBC % 0.0 (0.0-0.2) % Sodium 138 (137-145) mmol/L Potassium 4.1 (3.4-5.0) mmol/L Chloride 108 H (98-107) mmol/L Carbon Dioxide 20 L (22-30) mmol/L Anion Gap 10 (4-12) mmol/L BUN 20 (9-20) mg/dL Creatinine 1.19 (0.7-1.3) mg/dL Estim Creat Clear Calc 71 ml/min Estimated GFR > 60 (59 - ) Glucose 78 (65-110) mg/dL Calcium 9.8 (8.4-10.2) mg/dL Total Bilirubin 0.3 (0.2-1.3) mg/dL AST 31 (17-59) U/L ALT 43 (6-50) U/L Alkaline Phosphatase 82 (38-126) U/L Total Protein 7.5 (6.3-8.2) g/dL Albumin 4.4 (3.5-5.1) g/dL Lipase 115 (23-300) U/L Urine Color Yellow (Yellow) Urine Appearance Clear (Clear) Urine pH 7.0 (5.0-9.0) Ur Specific [place] 1.013 (1.001-1.035) Urine Protein 1+ H (Negative) mg/dL Urine Glucose (UA) Negative (Negative) mg/dL Urine Ketones Negative (Negative) mg/dL Ur Blood (Man) Non-hemolyzed trace (Negative) Urine Nitrate Negative (Negative) Urine Bilirubin Negative (Negative) Urine Urobilinogen 1.0 (<2.0) mg/dL Leukocyte Esterase Rfl Negative (Negative) BRADLEY/UL Urine RBC 11-20 H (0-2) /hpf Urine WBC 0-5 (0-3) /hpf Ur Squamous Epith Cells None seen (Few) /hpf Urine Bacteria None seen /hpf Urine Casts 3-5 <Ania Arenas PA-C - Last Filed: 11/26/24 17:42> Lab Results 11/25/24 11/25/24 11/25/24 Range/Units 18:32 18:41 18:59 WBC 11.1 H (4.5-10.0) K/mm3 RBC 4.50 L (4.6-6.20) M/mm3 Hgb 14.1 (14.0-18.0) g/dL Hct 41.9 L (42.0-52.0) % MCV 93.1 (80-100) fl MCH 31.3 (26-34) pg MCHC 33.7 (32-36) g/dl RDW 14.1 (11.5-14.5) % Plt Count 196 (150-375) k/mm3 MPV 9.3 (7.4-10.4) fl Immature Gran % (Auto) 0.3 (0-0.5) % Neut % (Auto) 56.6 (45.5-73.1) % Lymph % (Auto) 30.1 (18.3-44.2) % [place] % (Auto) 9.4 H (2.6-8.5) % Eos % (Auto) 3.1 (0-4.4) % Baso % (Auto) 0.5 (0.2-1.2) % Lymph # (Auto) 3.34 H (0.9-3.2) K/mm3 [place] # (Auto) 1.0 H (0.1-0.6) K/mm3 Eos # (Auto) 0.3 (0-0.3) K/mm3 Baso # (Auto) 0.1 (0.0-0.1) K/mm3 Abs Immat Gran (auto) 0.03 (0.00-0.031) K/mm3 Absolute Neuts (auto) 6.3 (1.3-6.7) K/mm3 Absolute Nucleated RBC 0.000 (0.0-0.012) K/mm3 Nucleated RBC % 0.0 (0.0-0.2) % Sodium 138 (137-145) mmol/L Potassium 4.1 (3.4-5.0) mmol/L Chloride 108 H (98-107) mmol/L Carbon Dioxide 20 L (22-30) mmol/L Anion Gap 10 (4-12) mmol/L BUN 20 (9-20) mg/dL Creatinine 1.19 (0.7-1.3) mg/dL Estim Creat Clear Calc 71 ml/min Estimated GFR > 60 (59 - ) Glucose 78 (65-110) mg/dL Calcium 9.8 (8.4-10.2) mg/dL Total Bilirubin 0.3 (0.2-1.3) mg/dL AST 31 (17-59) U/L ALT 43 (6-50) U/L Alkaline Phosphatase 82 (38-126) U/L Total Protein 7.5 (6.3-8.2) g/dL Albumin 4.4 (3.5-5.1) g/dL Lipase 115 (23-300) U/L Urine Color Yellow (Yellow) Urine Appearance Clear (Clear) Urine pH 7.0 (5.0-9.0) Ur Specific [place] 1.013 (1.001-1.035) Urine Protein 1+ H (Negative) mg/dL Urine Glucose (UA) Negative (Negative) mg/dL Urine Ketones Negative (Negative) mg/dL Ur Blood (Man) Non-hemolyzed trace (Negative) Urine Nitrate Negative (Negative) Urine Bilirubin Negative (Negative) Urine Urobilinogen 1.0 (<2.0) mg/dL Leukocyte Esterase Rfl Negative (Negative) BRADLEY/UL Urine RBC 11-20 H (0-2) /hpf Urine WBC 0-5 (0-3) /hpf Ur Squamous Epith Cells None seen (Few) /hpf Urine Bacteria None seen /hpf Urine Casts 3-5 <Lauren Rivers MD - Last Filed: 11/25/24 19:40> Imaging Data Radiologist's impression: ITS Impressions Abdomen/Pelvis CT 11/25/24 17:41 IMPRESSION: 1. Advancement of a 4 mm left ureteral stone now at the ureterovesicular junction with persistent mild left hydroureteronephrosis. <Ania Arenas PA-C - Last Filed: 11/26/24 17:42> ITS Impressions Abdomen/Pelvis CT 11/25/24 17:41 IMPRESSION: 1. Advancement of a 4 mm left ureteral stone now at the ureterovesicular junction with persistent mild left hydroureteronephrosis. <Lauren Rivers MD - Last Filed: 11/25/24 19:40> Critical Care Time Critical Care Time Critical Care Time: No <Ania Arenas PA-C - Last Filed: 11/26/24 17:42> Discharge Plan Discharge Clinical Impression: Calculus of ureterovesical junction (UVJ), Abdominal pain, LLQ <Ania Arenas PA-C - Last Filed: 11/26/24 17:42> Patient Disposition: Still a Patient <Ania Arenas PA-C - Last Filed: 11/26/24 17:42> Condition: Stable <Ania Arenas PA-C - Last Filed: 11/26/24 17:42> Time of Disposition: 19:39 <Ania Arenas PA-C - Last Filed: 11/26/24 17:42> 19:39 <Lauren Rivers MD - Last Filed: 11/25/24 19:40>
[2024-11-25] MEDS: KETOROLAC 30 MG/ML VIAL (*BKC) IM (18:27)
[2024-11-25 19:01] LABS: Add Urine Microscopic? YES; Appearance Urine Clear (Clear); Glucose Urine UA Negative (Negative); Leukocyte Esterase Ur Negative LEU/UL (Negative); Nitrate Urine Negative (Negative); Specific Grav Ur 1.013 (1.001-1.035)
[2024-11-25 19:05] LABS: Hematocrit 41.9 % (42.0-52.0); Hemoglobin 14.1 g/dL (14.0-18.0); Immature Granulocyte Percent A 0.3 % (0-0.5); Lymphocytes Absolute Auto 3.34 K/mm3 (0.9-3.2); Mean Corpuscular HGB Conc 33.7 g/dl (32-36); Mean Corpuscular Hemoglobin 31.3 pg (26-34); Mean Corpuscular Volume 93.1 fl (80-100); Nucleated Red Blood Cells Absolute Auto 0.000 K/mm3 (0.0-0.012); Nucleated Red Blood Cells Perc 0.0 % (0.0-0.2); Platelet Count Result 196 k/mm3 (150-375); Red Blood Count 4.50 M/mm3 (4.6-6.20); White Blood Count 11.1 K/mm3 (4.5-10.0)
[2024-11-25 19:07] VITALS: BP 133/88; PULSE 63; RESP 18; TEMP 36.7; O2SAT 97
[2024-11-25 19:12] LABS: Alanine Aminotransferase 43 U/L (6-50); Albumin Level 4.4 g/dL (3.5-5.1); Alkaline Phosphatase 82 U/L (38-126); Anion Gap 10 mmol/L (4-12); Aspartate Amino Transferase 31 U/L (17-59); Bilirubin,Total 0.3 mg/dL (0.2-1.3); Blood Urea Nitrogen 20 mg/dL (9-20); Calcium 9.8 mg/dL (8.4-10.2); Carbon Dioxide 20 mmol/L (22-30); Chloride 108 mmol/L (98-107); Estimated CRCL calculation 71 ml/min; Estimated Glomerular Filt Rate > 60; Glucose 78 mg/dL (65-110); Lipase 115 U/L (23-300); Potassium 4.1 mmol/L (3.4-5.0); Sodium 138 mmol/L (137-145); Total Protein 7.5 g/dL (6.3-8.2)
[2024-11-25] MEDS: HYDROmorphone HCL INJ (*CRX) 2 MG/ML VIAL 1 MG IV PUSH ×2 (19:23→22:12)
--- OUTSIDE RECORDS SUMMARY | 2024-11-25 19:51 | XMS_ITS | Clinical Summary ---
Author Organization [facility] Address [address] [place] [address] Care Team Providers Care Field Checker Name Role Phone Eamon Soliman Primary Care Provider [phone] Allergies Active Allergy Reactions Criticality Noted Date Comments Sulfa (Sulfonamide Antibiotics) Shortness of breath High 02/04/2019 Medications vqcopfax-tcn-XA-lyc open-lutein (CENTRUM SILVER ULTRA MEN'S) 300-600-300 mcg [...] extended release tabletIndications:C oronary artery disease of [place] artery of [place] heart with stable angina pectoris TAKE 1 TABLET BY MOUTH EVERY DAY 90 tablet 2 5 Active amLODIPine (NORVASC) 5 mg tabletIndications:C oronary artery disease of [place] artery of [place] heart with stable angina pectoris TAKE 1 TABLET (5 MG TOTAL) BY MOUTH DAILY. 90 tablet 2 5 Active rosuvastatin (CRESTOR) 20 mg tabletIndications:C oronary artery disease of [place] artery of [place] heart with stable angina pectoris TAKE 1 [...] complex partial seizure secondary generalization formally managed [facility]. 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
--- OUTSIDE RECORDS SUMMARY | 2024-11-25 19:51 | XMS_ITS | Referral Summary ---
Author Organization [facility] Address [address] [place] [address] Care Team Providers Care Form Block Maker Name Role Phone Eamon Soliman Primary Care Provider [phone] Encounters Date Type Department Care Team Description 10/26/2024 Telephone [facility] Neurology [address] [place] [phone] Prateek Woody Si, MD Med Refill from Last 3 Months Allergies Active Allergy Reactions Criticality Noted Date Comments Sulfa (Sulfonamide Antibiotics) Shortness of breath High 02/04/2019 Medications gpznhlhs-lre-SD-lyc open-lutein (CENTRUM SILVER ULTRA MEN'S) 300-600-300 mcg [...] extended release tabletIndications:C oronary artery disease of [place] artery of [place] heart with stable angina pectoris TAKE 1 TABLET BY MOUTH EVERY DAY 90 tablet 2 5 Active amLODIPine (NORVASC) 5 mg tabletIndications:C oronary artery disease of [place] artery of [place] heart with stable angina pectoris TAKE 1 TABLET (5 MG TOTAL) BY MOUTH DAILY. 90 tablet 2 5 Active rosuvastatin (CRESTOR) 20 mg tabletIndications:C oronary artery disease of [place] artery of [place] heart with stable angina pectoris TAKE 1 [...] complex partial seizure secondary generalization formally managed [facility]. 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
--- NOTE | 2024-11-25 19:58 | PM.IMHP ---
H&P: HPI History of Present Illness Date/Time: 11/25/24 19:58 Chief Complaint: Left lower abdominal pain Narrative: A 64-year-old male with past medical history CAD with NSTEMI status post PCI to OM1 and distal LCX in 2013 (chest pain evaluated in 2021 at [facility] found to have very small apical reversible defect, decided on medical management), hypertension, hyperlipidemia, seizure disorder. Presents to [facility] on 11/25/2024 with left lower quadrant pain. No vomiting, no diarrhea, last BM normal on day of admission. Previously presented on 10/31/2024 with similar symptom and found to have 4 mm stone in mid left ureter causing mild objective uropathy. Discharge with omeprazole, Ketoralac, tamsulosin, Zofran. Repeat CT abdomen pelvis without contrast demonstrates advancement of 4 mm left ureteral stone now in the ureteral vesicular junction with persistent mild left hydro ureter nephrosis. WBC 11.1, urinalysis 1+ protein. 11-20 RBC. Receive Toradol 30 mg IM x1, Dilaudid 1 mg IV x1, tamsulosin 0.4 mg p.o. x1. Upon repeat evaluation the patient is resting comfortably. Review of Systems Review of Systems: All systems reviewed & are unremarkable except as noted in HPI and below (HPI) [facility] Past Medical History Medical History Tobacco dependence Hypertension Coronary artery disease Patient of Dr. Nikhil Garcia. Foot fracture, right Asthma Hyperlipemia Seizure disorder He has not had a seizure since 1994, but is on long-term Dilantin as he apparently had recurrent seizures when that drug was stopped. Renal malignant neoplasm Status post cryoablation in 2014. Renal cyst, acquired Surgical History Surgical History History of colonoscopy History of removal of cyst Status post incision and drainage Left facial abscess. History of tonsillectomy History of heart artery stent (2013) x 2 in 2014. Family History Family History Sibling Cerebrovascular accident Mother Family history of Alzheimer's disease Sibling Lymphoma Father Hypertension Acute myocardial infarction Grandparent Congestive heart failure Social History Social History Social History: The patient is and lives with his in [place]. They have 2 children. 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 No alcohol or drug abuse. he designates his , Lanie Saleem, as his surrogate decision maker and he wishes to be a full code. 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. Spiritual care concerns: No Agree to blood products: Yes Meds Home Medications and Allergies Home Medications ?Medication ?Instructions ?Recorded ?Confirmed ?Type phenytoin sodium extended 100 mg 300 mg PO BID 05/10/19 01/22/22 History capsule telmisartan 40 mg tablet 40 mg PO DAILY #90 tabs 11/28/21 01/21/22 Rx aspirin 81 mg tablet,delayed 81 mg PO DAILY 01/21/22 01/21/22 History release amlodipine 5 mg tablet 5 mg PO DAILY 30 days #30 tabs 01/23/22 Rx metoprolol succinate 50 mg 50 mg PO DAILY 30 days #30 tabs 01/23/22 Rx tablet,extended release 24 hr (Toprol XL) nitroglycerin 0.3 mg sublingual 0.3 mg sublingual Q5-15M PRN chest 01/23/22 Rx tablet pain #30 tabs rosuvastatin 20 mg tablet 20 mg PO HS 30 days #30 tabs 01/23/22 Rx ketorolac 10 mg tablet 10 mg PO Q8H PRN pain 5 days #14 10/31/24 Rx tabs omeprazole 20 mg tablet,delayed 20 mg PO DAILY #14 tabs 10/31/24 Rx release ondansetron 4 mg disintegrating 4 mg PO Q8H PRN nausea and 10/31/24 Rx tablet vomiting #7 tabs tamsulosin 0.4 mg capsule 0.4 mg PO DAILY #12 caps 10/31/24 Rx lorazepam 0.5 mg tablet 0.5 mg PO .COMPLEX PRN anxiety #5 11/19/24 Rx tabs Allergies Allergy/AdvReac Type Severity Reaction Status Date / Time Sulfa (Sulfonamide AdvReac Severe Other Verified 10/31/24 18:42 Antibiotics) Vital Signs Vital Signs - 24 hr 11/25/24 17:08 11/25/24 19:07 Temperature 98.0 F Pulse Rate 74 63 Respiratory Rate 18 18 Blood Pressure 155/99 H 133/88 Pulse Oximetry 97 97 Oxygen Delivery Room Air Exam Const: General: comfortable and no acute distress Other: A&O x3 HENMT: Mouth: Yes moist mucous membranes Eyes: Pupils: Equal, round and reactive pupils present Neck: Neck: supple Resp: Effort & Inspection: normal respiratory effort Auscultation: clear to auscultation bilaterally Cardio: Rate: regular rate Rhythm: regular rhythm Heart sounds: no gallops, no murmurs and no rubs GI: Inspection: non-distended GI Palp: Yes Soft to palpation and No Tenderness to palpation present (GI) Auscultation: normal bowel sounds : General: Yes bladder normal to palpation Neuro: Motor exam (neuro): 5/5 motor strength present throughout Extrem: General: no edema H&P: Results Labs Labs: Short CBC 11/25/24 Range/Units 18:59 WBC 11.1 H (4.5-10.0) K/mm3 Hgb 14.1 (14.0-18.0) g/dL Hct 41.9 L (42.0-52.0) % Plt Count 196 (150-375) k/mm3 BMP 11/25/24 18:32 Sodium 138 Potassium 4.1 Chloride 108 H Carbon Dioxide 20 L BUN 20 Creatinine 1.19 Glucose 78 Calcium 9.8 Liver Function 11/25/24 Range/Units 18:32 Total Bilirubin 0.3 (0.2-1.3) mg/dL AST 31 (17-59) U/L ALT 43 (6-50) U/L Alkaline Phosphatase 82 (38-126) U/L Albumin 4.4 (3.5-5.1) g/dL Urine 11/25/24 Range/Units 18:41 Urine Color Yellow (Yellow) Urine Appearance Clear (Clear) Urine pH 7.0 (5.0-9.0) Ur Specific Lane 1.013 (1.001-1.035) Urine Protein 1+ H (Negative) mg/dL Urine Glucose (UA) Negative (Negative) mg/dL Assessment and Plan Assessment and plan (1) Leukocytosis: Code(s): D72.829 - Elevated white blood cell count, unspecified Status: Inactive (2) Left ureteral stone: Code(s): N20.1 - Calculus of ureter Status: Inactive Plan A 64-year-old male with past medical history CAD with NSTEMI status post PCI to OM1 and distal LCX in 2013 (chest pain evaluated in 2021 at [facility] found to have very small apical reversible defect, decided on medical management), hypertension, hyperlipidemia, seizure disorder. Presents to [facility] on 11/25/2024 with left lower quadrant pain. No vomiting, no diarrhea, last BM normal on day of admission. Previously presented on 10/31/2024 with similar symptom and found to have 4 mm stone in mid left ureter causing mild objective uropathy. Discharge with omeprazole, Ketoralac, tamsulosin, Zofran. Repeat CT abdomen pelvis without contrast demonstrates advancement of 4 mm left ureteral stone now in the ureteral vesicular junction with persistent mild left hydro ureter nephrosis. WBC 11.1, urinalysis 1+ protein. 11-20 RBC. Receive Toradol 30 mg IM x1, Dilaudid 1 mg IV x1, tamsulosin 0.4 mg p.o. x1. Upon repeat evaluation the patient is resting comfortably. ----- Urology consulted from the ER. NPO midnight. Continue lactated Ringer's at 125 cc/hour. Zofran, Tylenol, hydromorphone p.r.n.. Patient wishes to be full code. SCDs. Hospitalist MIPS Advance Care Plan I have confirmed that the patient's Advanced Care Plan is present, code status is documented, or surrogate decision maker is listed in patient medical record.: Yes Medication Reconciliation I have utilized all available resources to obtain, update and review the patients current medications (includes all prescriptions, OTC, herbals, cannabis, and nutritional supplements).: Yes
[2024-11-25 21:21] VITALS: BMI 32.5
[2024-11-25 21:32] VITALS: BP 135/80; PULSE 59; RESP 16; TEMP 36.4; O2SAT 94
[2024-11-25] MEDS: LACTATED RINGERS 1,000 ML 125 ML IV CONT (22:13)
[2024-11-25] MEDS: ROSUVASTATIN 20 MG TABLET PO (23:46)
[2024-11-25] MEDS: PHENYTOIN SODIUM 100 MG EXTENDED RELEASE CAP 300 MG PO (23:46)
[2024-11-26] VITALS (12 sets, daily range): BP systolic 114–178; BP diastolic 77–96; PULSE 49–60; RESP 12–20; TEMP 36.1–36.7; O2SAT 96–100
[2024-11-26] MEDS: HYDROmorphone HCL INJ (*CRX) 2 MG/ML VIAL 1 MG IV PUSH ×4 (04:57→23:03)
[2024-11-26] MEDS: LACTATED RINGERS 1,000 ML 125 ML IV CONT (04:57)
[2024-11-26 06:44] LABS: Hematocrit 40.9 % (42.0-52.0); Hemoglobin 13.6 g/dL (14.0-18.0); Immature Granulocyte Percent A 0.2 % (0-0.5); Lymphocytes Absolute Auto 3.25 K/mm3 (0.9-3.2); Mean Corpuscular HGB Conc 33.3 g/dl (32-36); Mean Corpuscular Hemoglobin 31.6 pg (26-34); Mean Corpuscular Volume 94.9 fl (80-100); Nucleated Red Blood Cells Absolute Auto 0.000 K/mm3 (0.0-0.012); Nucleated Red Blood Cells Perc 0.0 % (0.0-0.2); Platelet Count Result 183 k/mm3 (150-375); Red Blood Count 4.31 M/mm3 (4.6-6.20); White Blood Count 9.5 K/mm3 (4.5-10.0)
[2024-11-26 06:55] LABS: INR 1.0; Prothrombin Time 13.6 Seconds (11.1-14.7)
[2024-11-26 07:17] LABS: Anion Gap 5 mmol/L (4-12); Blood Urea Nitrogen 20 mg/dL (9-20); Calcium 9.0 mg/dL (8.4-10.2); Carbon Dioxide 24 mmol/L (22-30); Chloride 108 mmol/L (98-107); Estimated CRCL calculation 96 ml/min; Estimated Glomerular Filt Rate > 60; Glucose 94 mg/dL (65-110); Magnesium 2.1 mg/dL (1.6-2.3); Potassium 4.0 mmol/L (3.4-5.0); Sodium 137 mmol/L (137-145)
[2024-11-26] MEDS: LORATADINE 10 MG TABLET PO (09:01)
[2024-11-26] MEDS: DOCUSATE SODIUM 100 MG CAPSULE PO (09:01)
[2024-11-26] MEDS: PHENYTOIN SODIUM 100 MG EXTENDED RELEASE CAP 300 MG PO ×2 (09:13→18:07)
--- NOTE | 2024-11-26 09:20 | WPDURCON ---
Assessment and Plan Assessment and plan (1) Calculus of ureterovesical junction (UVJ): Code(s): N20.1 - Calculus of ureter Status: Acute (2) Hydroureteronephrosis: Code(s): N13.30 - Unspecified hydronephrosis Status: Acute Plan 64y old male with 4mm left uvj stone with mild hydroureteronephrosis. - CT AP WO CON demonstrates advancement of 4 mm left ureteral stone now in the ureteral vesicular junction with persistent mild left hydro ureter nephrosis. -WBC 11.1 yesterday and is now wnl at 9.5 today -UA shows 1+ protein. 11-20 RBC. -kidney function WNL -keep NPO -Plan for add on today for cystoscopy, L ureteroscopy with stone extraction and possible stent placement with Dr. García. -Discussed plan with patient including risks of surgery and follow up regarding stent. Stent expectations discussed. Patient agreeable and agrees to proceed with surgical intervention. Urology Consult Note HPI Date Seen: 11/26/24 Requesting Physician: Mayra Wright MD Primary Care Provider: Viridiana Moore MD Consult Narrative Narrative: Klaus Saleem is a 64 year old male with past medical history CAD with NSTEMI status post PCI to OM1 and distal LCX in 2013 (chest pain evaluated in 2021 at [facility] found to have very small apical reversible defect, decided on medical management), hypertension, hyperlipidemia, seizure disorder. Presents to [facility] on 11/25/2024 with left lower quadrant pain. No vomiting, no diarrhea, last BM normal on day of admission. Previously presented on 10/31/2024 with similar symptom and found to have 4 mm stone in mid left ureter causing mild objective uropathy. Review of Systems Constitutional: Constitutional: Reports as per HPI [facility] Past Medical History Medical History Tobacco dependence Hypertension Coronary artery disease Patient of Dr. Nikhil Garcia. Foot fracture, right Asthma Hyperlipemia Seizure disorder He has not had a seizure since 1994, but is on long-term Dilantin as he apparently had recurrent seizures when that drug was stopped. Renal malignant neoplasm Status post cryoablation in 2014. Renal cyst, acquired Surgical History Surgical History History of colonoscopy History of removal of cyst Status post incision and drainage Left facial abscess. History of tonsillectomy History of heart artery stent (2014) x 2 in 2014. Family History Family History Sibling Cerebrovascular accident Mother Family history of Alzheimer's disease Sibling Lymphoma Father Hypertension Acute myocardial infarction Grandparent Congestive heart failure Social History Social History Social History: The patient is and lives with his in [place]. They have 2 children. 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 No alcohol or drug abuse. he designates his , Lanie Saleem, as his surrogate decision maker and he wishes to be a full code. Smoking packs per day: 0.5 Smoking cigarettes per day: 10.0 Smoking status: Former smoker Tobacco type: cigarettes Second hand tobacco smoke exposure: Yes Smoking end date: 06/05/24 Alcohol intake: current Substance use: never Do You Feel Safe in your Home?: Yes Lack of Transportation: No Lack of Food: Never True Current Housing: I Have Housing Concerned About Future Housing: No Difficulty Paying Gas/Electric Bills: No Difficulty Paying for Meds: No Currently Unemployed: No Education: High School Diploma/GED Difficulty w/ Childcare or Family Care: No Living arrangements: with family Occupation/Education: retired Additional occupation/education comments: 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 Spiritual care concerns: No Agree to blood products: Yes Meds Home Medications and Allergies Home Medications ?Medication ?Instructions ?Recorded ?Confirmed ?Type phenytoin sodium extended 100 mg 300 mg PO BID 05/10/19 11/25/24 History capsule telmisartan 40 mg tablet 40 mg PO DAILY #90 tabs 11/28/21 01/21/22 Rx aspirin 81 mg tablet,delayed 81 mg PO DAILY 01/21/22 11/25/24 History release amlodipine 5 mg tablet 5 mg PO DAILY 30 days #30 tabs 01/23/22 11/25/24 Rx metoprolol succinate 50 mg 50 mg PO DAILY 30 days #30 tabs 01/23/22 11/25/24 Rx tablet,extended release 24 hr (Toprol XL) nitroglycerin 0.3 mg sublingual 0.3 mg sublingual Q5-15M PRN chest 01/23/22 Rx tablet pain #30 tabs rosuvastatin 20 mg tablet 20 mg PO HS 30 days #30 tabs 01/23/22 11/25/24 Rx ketorolac 10 mg tablet 10 mg PO Q8H PRN pain 5 days #14 10/31/24 Rx tabs omeprazole 20 mg tablet,delayed 20 mg PO DAILY #14 tabs 10/31/24 Rx release ondansetron 4 mg disintegrating 4 mg PO Q8H PRN nausea and 10/31/24 Rx tablet vomiting #7 tabs tamsulosin 0.4 mg capsule 0.4 mg PO DAILY #12 caps 10/31/24 Rx lorazepam 0.5 mg tablet 0.5 mg PO .COMPLEX PRN anxiety #5 11/19/24 Rx tabs docusate sodium 100 mg tablet 100 mg PO DAILY stool softner 11/25/24 11/25/24 History loratadine 10 mg tablet (Allergy 10 mg PO DAILY allergy relief 11/25/24 11/25/24 History Relief (loratadine)) Allergies Allergy/AdvReac Type Severity Reaction Status Date / Time Sulfa (Sulfonamide AdvReac Severe Other Verified 10/31/24 18:42 Antibiotics) Vital Signs Vital Signs - 24 hr 11/25/24 17:08 11/25/24 19:07 11/25/24 21:32 Temperature 98.0 F 97.6 F Pulse Rate 74 63 59 L Respiratory Rate 18 18 16 Blood Pressure 155/99 H 133/88 135/80 Pulse Oximetry 97 97 94 Oxygen Delivery Room Air 11/26/24 04:47 Temperature 98.0 F Pulse Rate 59 L Respiratory Rate 16 Blood Pressure 142/96 H Pulse Oximetry 99 Oxygen Delivery Exam Const: General: no acute distress and uncomfortable Eyes: General: appearance normal, both eyes and all related structures Resp: Effort & Inspection: normal respiratory effort Cardio: Rate: regular rate Skin: General skin exam: normal color Neuro: Speech: normal speech Psych: Speech and movement: Normal speech and movement present Results Labs 11/26/24 06:19 11/26/24 06:19 Labs: Short CBC 11/25/24 11/26/24 Range/Units 18:59 06:19 WBC 11.1 H 9.5 (4.5-10.0) K/mm3 Hgb 14.1 13.6 L (14.0-18.0) g/dL Hct 41.9 L 40.9 L (42.0-52.0) % Plt Count 196 183 (150-375) k/mm3 BMP 11/25/24 11/26/24 18:32 06:19 Sodium 138 137 Potassium 4.1 4.0 Chloride 108 H 108 H Carbon Dioxide 20 L 24 BUN 20 20 Creatinine 1.19 0.87 Glucose 78 94 Calcium 9.8 9.0 Liver Function 11/25/24 Range/Units 18:32 Total Bilirubin 0.3 (0.2-1.3) mg/dL AST 31 (17-59) U/L ALT 43 (6-50) U/L Alkaline Phosphatase 82 (38-126) U/L Albumin 4.4 (3.5-5.1) g/dL Urine 11/25/24 Range/Units 18:41 Urine Color Yellow (Yellow) Urine Appearance Clear (Clear) Urine pH 7.0 (5.0-9.0) Ur Specific [place] 1.013 (1.001-1.035) Urine Protein 1+ H (Negative) mg/dL Urine Glucose (UA) Negative (Negative) mg/dL
--- NOTE | 2024-11-26 11:01 | ECG_ITS ---
Test Date: 2024-11-26 11:42:12 Measurements Intervals [place] Rate: 50 P: -1 MD: 147 QRS: 0 QRSD: 110 T: 20 QT: 449 QTc: 412 Interpretive Statements SINUS BRADYCARDIA POSSIBLE RIGHT VENTRICULAR CONDUCTION DELAY [RSR (QR) IN V1/V2] No previous ECG available for comparison Electronically Signed On 11-27-2024 18:37:08 CDT by Felipe Blackburn M.D.
--- NOTE | 2024-11-26 12:38 | WPDANESEPPF ---
Anes - Initial Pre Proc Eval Procedure: Operation Date: 11/26/24 14:00 Proposed Procedures p Cystoscopy, Left Ureteroscopy, Possible Left Retrograde Pyelogram, Possible Left Stone Extraction, Possible Left Stent Placement, Possible Holmium Laser - Ta García MD Date/Time: 11/26/24 12:38 Surgeon: Mayra Wright MD Pre Op Diagnosis: L UVJ stone Patient Data Age: 64 Gender: M Height: 1.83 m Weight: 109.1 kg Last Vital Signs Temp 36.7 C 11/26/24 04:47 Pulse 59 L 11/26/24 04:47 Resp 16 11/26/24 04:47 BP 142/96 H 11/26/24 04:47 Pulse Ox 99 11/26/24 04:47 O2 Del Method Room Air 11/25/24 17:08 Allergies Allergy/AdvReac Type Severity Reaction Status Date / Time Sulfa (Sulfonamide AdvReac Severe Other Verified 10/31/24 18:42 Antibiotics) Home Medications ?Medication ?Instructions ?Recorded ?Confirmed ?Type phenytoin sodium extended 100 mg 300 mg PO BID 05/10/19 11/25/24 History capsule telmisartan 40 mg tablet 40 mg PO DAILY #90 tabs 11/28/21 01/21/22 Rx aspirin 81 mg tablet,delayed 81 mg PO DAILY 01/21/22 11/25/24 History release amlodipine 5 mg tablet 5 mg PO DAILY 30 days #30 tabs 01/23/22 11/25/24 Rx metoprolol succinate 50 mg 50 mg PO DAILY 30 days #30 tabs 01/23/22 11/25/24 Rx tablet,extended release 24 hr (Toprol XL) nitroglycerin 0.3 mg sublingual 0.3 mg sublingual Q5-15M PRN chest 01/23/22 Rx tablet pain #30 tabs rosuvastatin 20 mg tablet 20 mg PO HS 30 days #30 tabs 01/23/22 11/25/24 Rx ketorolac 10 mg tablet 10 mg PO Q8H PRN pain 5 days #14 10/31/24 Rx tabs omeprazole 20 mg tablet,delayed 20 mg PO DAILY #14 tabs 10/31/24 Rx release ondansetron 4 mg disintegrating 4 mg PO Q8H PRN nausea and 10/31/24 Rx tablet vomiting #7 tabs tamsulosin 0.4 mg capsule 0.4 mg PO DAILY #12 caps 10/31/24 Rx lorazepam 0.5 mg tablet 0.5 mg PO .COMPLEX PRN anxiety #5 11/19/24 Rx tabs docusate sodium 100 mg tablet 100 mg PO DAILY stool softner 11/25/24 11/25/24 History loratadine 10 mg tablet (Allergy 10 mg PO DAILY allergy relief 11/25/24 11/25/24 History Relief (loratadine)) Laboratory Tests 11/25/24 11/25/24 11/25/24 18:32 18:41 18:59 WBC 11.1 H K/mm3 (4.5-10.0) RBC 4.50 L M/mm3 (4.6-6.20) Hgb 14.1 g/dL (14.0-18.0) Hct 41.9 L % (42.0-52.0) MCV 93.1 fl (80-100) MCH 31.3 pg (26-34) MCHC 33.7 g/dl (32-36) RDW 14.1 % (11.5-14.5) Plt Count 196 k/mm3 (150-375) MPV 9.3 fl (7.4-10.4) Immature Gran % (Auto) 0.3 % (0-0.5) Neut % (Auto) 56.6 % (45.5-73.1) Lymph % (Auto) 30.1 % (18.3-44.2) [place] % (Auto) 9.4 H % (2.6-8.5) Eos % (Auto) 3.1 % (0-4.4) Baso % (Auto) 0.5 % (0.2-1.2) Lymph # (Auto) 3.34 H K/mm3 (0.9-3.2) [place] # (Auto) 1.0 H K/mm3 (0.1-0.6) Eos # (Auto) 0.3 K/mm3 (0-0.3) Baso # (Auto) 0.1 K/mm3 (0.0-0.1) Abs Immat Gran (auto) 0.03 K/mm3 (0.00-0.031) Absolute Neuts (auto) 6.3 K/mm3 (1.3-6.7) Absolute Nucleated RBC 0.000 K/mm3 (0.0-0.012) Nucleated RBC % 0.0 % (0.0-0.2) PT INR Sodium 138 mmol/L (137-145) Potassium 4.1 mmol/L (3.4-5.0) Chloride 108 H mmol/L (98-107) Carbon Dioxide 20 L mmol/L (22-30) Anion Gap 10 mmol/L (4-12) BUN 20 mg/dL (9-20) Creatinine 1.19 mg/dL (0.7-1.3) Estim Creat Clear Calc 71 ml/min Estimated GFR > 60 (59 - ) Glucose 78 mg/dL (65-110) Calcium 9.8 mg/dL (8.4-10.2) Magnesium Total Bilirubin 0.3 mg/dL (0.2-1.3) AST 31 U/L (17-59) ALT 43 U/L (6-50) Alkaline Phosphatase 82 U/L (38-126) Total Protein 7.5 g/dL (6.3-8.2) Albumin 4.4 g/dL (3.5-5.1) Lipase 115 U/L (23-300) Procalcitonin Urine Color Yellow (Yellow) Urine Appearance Clear (Clear) Urine pH 7.0 (5.0-9.0) Ur Specific [place] 1.013 (1.001-1.035) Urine Protein 1+ H mg/dL (Negative) Urine Glucose (UA) Negative mg/dL (Negative) Urine Ketones Negative mg/dL (Negative) Ur Blood (Man) Non-hemolyzed trace (Negative) Urine Nitrate Negative (Negative) Urine Bilirubin Negative (Negative) Urine Urobilinogen 1.0 mg/dL (<2.0) Leukocyte Esterase Rfl Negative BRADLEY/UL (Negative) Urine RBC 11-20 H /hpf (0-2) Urine WBC 0-5 /hpf (0-3) Ur Squamous Epith Cells None seen /hpf (Few) Urine Bacteria None seen /hpf Urine Casts 3-5 11/26/24 06:19 WBC 9.5 K/mm3 (4.5-10.0) RBC 4.31 L M/mm3 (4.6-6.20) Hgb 13.6 L g/dL (14.0-18.0) Hct 40.9 L % (42.0-52.0) MCV 94.9 fl (80-100) MCH 31.6 pg (26-34) MCHC 33.3 g/dl (32-36) RDW 13.9 % (11.5-14.5) Plt Count 183 k/mm3 (150-375) MPV 9.4 fl (7.4-10.4) Immature Gran % (Auto) 0.2 % (0-0.5) Neut % (Auto) 50.5 % (45.5-73.1) Lymph % (Auto) 34.4 % (18.3-44.2) [place] % (Auto) 10.8 H % (2.6-8.5) Eos % (Auto) 3.4 % (0-4.4) Baso % (Auto) 0.7 % (0.2-1.2) Lymph # (Auto) 3.25 H K/mm3 (0.9-3.2) [place] # (Auto) 1.0 H K/mm3 (0.1-0.6) Eos # (Auto) 0.3 K/mm3 (0-0.3) Baso # (Auto) 0.1 K/mm3 (0.0-0.1) Abs Immat Gran (auto) 0.02 K/mm3 (0.00-0.031) Absolute Neuts (auto) 4.8 K/mm3 (1.3-6.7) Absolute Nucleated RBC 0.000 K/mm3 (0.0-0.012) Nucleated RBC % 0.0 % (0.0-0.2) PT 13.6 Seconds (11.1-14.7) INR 1.0 Sodium 137 mmol/L (137-145) Potassium 4.0 mmol/L (3.4-5.0) Chloride 108 H mmol/L (98-107) Carbon Dioxide 24 mmol/L (22-30) Anion Gap 5 mmol/L (4-12) BUN 20 mg/dL (9-20) Creatinine 0.87 mg/dL (0.7-1.3) Estim Creat Clear Calc 96 ml/min Estimated GFR > 60 (59 - ) Glucose 94 mg/dL (65-110) Calcium 9.0 mg/dL (8.4-10.2) Magnesium 2.1 mg/dL (1.6-2.3) Total Bilirubin AST ALT Alkaline Phosphatase Total Protein Albumin Lipase Procalcitonin Pending Urine Color Urine Appearance Urine pH Ur Specific [place] Urine Protein Urine Glucose (UA) Urine Ketones Ur Blood (Man) Urine Nitrate Urine Bilirubin Urine Urobilinogen Leukocyte Esterase Rfl Urine RBC Urine WBC Ur Squamous Epith Cells Urine Bacteria Urine Casts Patient hx anesthesia problems: none Family hx anesthesia problems: none Results Review: All pre-operative results and documents have been reviewed as part of the pre-operative evaluation. [facility] Past Medical History Medical History Tobacco dependence Hypertension Coronary artery disease Patient of Dr. Nikhil Garcia. Foot fracture, right Asthma Hyperlipemia Seizure disorder He has not had a seizure since 1994, but is on long-term Dilantin as he apparently had recurrent seizures when that drug was stopped. Renal malignant neoplasm Status post cryoablation in 2014. Renal cyst, acquired Surgical History Surgical History History of colonoscopy History of removal of cyst Status post incision and drainage Left facial abscess. History of tonsillectomy History of heart artery stent (2013) x 2 in 2013. Family History Family History Sibling Cerebrovascular accident Mother Family history of Alzheimer's disease Sibling Lymphoma Father Hypertension Acute myocardial infarction Grandparent Congestive heart failure Social History Social History Social History: The patient is and lives with his in [place]. They have 2 children. 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 No alcohol or drug abuse. he designates his , Lanie Saleem, as his surrogate decision maker and he wishes to be a full code. Smoking packs per day: 0.5 Smoking cigarettes per day: 10.0 Smoking status: Former smoker Tobacco type: cigarettes Second hand tobacco smoke exposure: Yes Smoking end date: 06/05/24 Alcohol intake: current Substance use: never Do You Feel Safe in your Home?: Yes Lack of Transportation: No Lack of Food: Never True Current Housing: I Have Housing Concerned About Future Housing: No Difficulty Paying Gas/Electric Bills: No Difficulty Paying for Meds: No Currently Unemployed: No Education: High School Diploma/GED Difficulty w/ Childcare or Family Care: No Living arrangements: with family Occupation/Education: retired Additional occupation/education comments: watches his grandchildren; 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 Spiritual care concerns: No Agree to blood products: Yes Anes - Eval Final PreProcedure Day of Procedure 11/26/24 12:38 Patient weight: obese Heart: regular rate and rhythm Lungs: decreased breath sounds Airway: Mallampati scale class II Neurological: alert and oriented Last oral intake: >/= 8 hours ASA classification: III Emergent: no Anesthetic plan: proceed Anesthesia type and monitoring: general LMA and standard monitoring Results Review: All pre-operative results and documents have been reviewed as part of the pre-operative evaluation. Informed Consent: The patient's anesthetic plan and its attendant risks and benefits were discussed with the patient/family/POA. Questions were solicited and answers provided to the satisfaction of the patient/family/POA.
--- NOTE | 2024-11-26 12:44 | WPDHPUPDATE1 ---
History and Physical Update Update Date/Time: 11/26/24 12:44 History and Physical has been reviewed, including an updated exam of the patient. There are NO changes in the patient's condition. Risks, benefits, and alternatives have been discussed and questions answered. Patient agrees to proceed with procedure. Proceed with cystoscopy, left retrograde, left ureteroscopy with stone extraction, possible laser, stent placement
[2024-11-26] MEDS: LACTATED RINGERS 1,000 ML 30 ML IV CONT (12:50)
[2024-11-26] MEDS: ceFAZolin 2 GM in SODIUM CHLORIDE 0.9% IV 50 ML 100 ML IVPB (12:55)
[2024-11-26] MEDS: LIDOCAINE 2% GEL UROJET 10 ML PKG MUCOUS MEM (13:07)
--- NOTE | 2024-11-26 13:45 | P.OP_ITS ---
Procedure Note - Detailed Date of Procedure 11/26/24 Pre-op Diagnosis L UVJ stone Post-op Diagnosis Same Procedure Performed Cystoscopy, left retrograde, left ureteroscopy with laser, stent placement 4.8 Turkish contour Surgeon Ta García MD Anesthesia General Description of Procedure patient was taken to the operative suite correctly identified. Once anesthesia was obtained he was placed in the dorsal lithotomy position and prepped and draped usual sterile fashion. Twenty-two Turkish scope was inserted into the bladder direct vision. There were no tumors noted. The patient has extremely edematous left yassine trigone which was raised. Was very difficult to find the orifice. We finally used a 70 degree lens with a ureteral catheter and advanced an angled Glidewire into the orifice. We then dilated with an 8/10 dilator. The wire was exchanged out for a Sensor wire. A 2nd Sensor wire was inserted. There were no rigid ureteral scopes available at this time. We thus placed a flexible ureteral scope into the orifice. The stone was visualized in lasered. Most of the fragments were dust. Some of the smaller ones he will pass. At this point a pyelogram was performed to confirm placement of the stent. A 4.8 Turkish contour stent was then placed with the proximal end coiled in the renal pelvis and the distal end in the bladder. He was taken recovery stable condition. He can be discharged home later today from Urology standpoint and follow up in 7-10 days for stent removal in the office. This completes dictation. Please send a copy of op note to my office Estimated Blood Loss 0 Drains Yes Packing No Pathology None sent Complications No immediate complications Condition Stable Disposition PACU
--- NOTE | 2024-11-26 15:01 | P.DS_ITS ---
DS: Admitting Diagnosis Discharge Date 11/26/24 Admitting Diagnosis Left lower abdominal pain DS: Discharge Diagnosis Discharge Diagnosis (1) Abdominal pain, LLQ: Code(s): R10.32 - Left lower quadrant pain Status: Acute DS: Summary Hospital Course Hospital Course: A 64-year-old male with past medical history CAD with NSTEMI status post PCI to OM1 and distal LCX in 2013 (chest pain evaluated in 2021 at [facility] found to have very small apical reversible defect, decided on medical management), hypertension, hyperlipidemia, seizure disorder. Presents to [facility] on 11/25/2024 with left lower quadrant pain. No vomiting, no diarrhea, last BM normal on day of admission. Previously presented on 10/31/2024 with similar symptom and found to have 4 mm stone in mid left ureter causing mild objective uropathy. Discharge with omeprazole, Ketoralac, tamsulosin, Zofran. Repeat CT abdomen pelvis without contrast demonstrates advancement of 4 mm left ureteral stone now in the ureteral vesicular junction with persistent mild left hydro ureter nephrosis. WBC 11.1, urinalysis 1+ protein. 11-20 RBC. Receive Toradol 30 mg IM x1, Dilaudid 1 mg IV x1, tamsulosin 0.4 mg p.o. x1. Upon repeat evaluation the patient is resting comfortably.' Urology was consulted and Cystoscopy, left retrograde, left ureteroscopy with laser, stent placement 4.8 Turkmen contour. Patient was discharged on Cipro x 3 days. F/u wt PCP in 3-5 days F/u with urology as instructed Time Spent with Patient Time attestation: Total time spent providing and/or coordinating discharge services: DS: Data Data Completed and Pending Labs on day of discharge: Labs from last 24 hours 11/26/24 11/25/24 11/25/24 06:19 18:59 18:41 WBC 9.5 11.1 H RBC 4.31 L 4.50 L Hgb 13.6 L 14.1 Hct 40.9 L 41.9 L MCV 94.9 93.1 MCH 31.6 31.3 MCHC 33.3 33.7 RDW 13.9 14.1 Plt Count 183 196 MPV 9.4 9.3 Immature Gran % (Auto) 0.2 0.3 Neut % (Auto) 50.5 56.6 Lymph % (Auto) 34.4 30.1 [place] % (Auto) 10.8 H 9.4 H Eos % (Auto) 3.4 3.1 Baso % (Auto) 0.7 0.5 Lymph # (Auto) 3.25 H 3.34 H [place] # (Auto) 1.0 H 1.0 H Eos # (Auto) 0.3 0.3 Baso # (Auto) 0.1 0.1 Abs Immat Gran (auto) 0.02 0.03 Absolute Neuts (auto) 4.8 6.3 Absolute Nucleated RBC 0.000 0.000 Nucleated RBC % 0.0 0.0 PT 13.6 INR 1.0 Sodium 137 Potassium 4.0 Chloride 108 H Carbon Dioxide 24 Anion Gap 5 BUN 20 Creatinine 0.87 Estim Creat Clear Calc 96 Estimated GFR > 60 Glucose 94 Calcium 9.0 Magnesium 2.1 Total Bilirubin AST ALT Alkaline Phosphatase Total Protein Albumin Lipase Procalcitonin Pending Urine Color Yellow Urine Appearance Clear Urine pH 7.0 Ur Specific [place] 1.013 Urine Protein 1+ H Urine Glucose (UA) Negative Urine Ketones Negative Ur Blood (Man) Non-hemolyzed trace Urine Nitrate Negative Urine Bilirubin Negative Urine Urobilinogen 1.0 Leukocyte Esterase Rfl Negative Urine RBC 11-20 H Urine WBC 0-5 Ur Squamous Epith Cells None seen Urine Bacteria None seen Urine Casts 3-5 11/25/24 18:32 WBC RBC Hgb Hct MCV MCH MCHC RDW Plt Count MPV Immature Gran % (Auto) Neut % (Auto) Lymph % (Auto) [place] % (Auto) Eos % (Auto) Baso % (Auto) Lymph # (Auto) [place] # (Auto) Eos # (Auto) Baso # (Auto) Abs Immat Gran (auto) Absolute Neuts (auto) Absolute Nucleated RBC Nucleated RBC % PT INR Sodium 138 Potassium 4.1 Chloride 108 H Carbon Dioxide 20 L Anion Gap 10 BUN 20 Creatinine 1.19 Estim Creat Clear Calc 71 Estimated GFR > 60 Glucose 78 Calcium 9.8 Magnesium Total Bilirubin 0.3 AST 31 ALT 43 Alkaline Phosphatase 82 Total Protein 7.5 Albumin 4.4 Lipase 115 Procalcitonin Urine Color Urine Appearance Urine pH Ur Specific [place] Urine Protein Urine Glucose (UA) Urine Ketones Ur Blood (Man) Urine Nitrate Urine Bilirubin Urine Urobilinogen Leukocyte Esterase Rfl Urine RBC Urine WBC Ur Squamous Epith Cells Urine Bacteria Urine Casts Discharge Plan Discharge Attending physician on discharge: Kirill Randall Consulting providers: Parminder Lozoya Discharging Clinician: Kirill Randall Anticipated Discharge Date/Time: 11/26/24 14:58 Patient Disposition: Home Activity: as tolerated Diet: as tolerated and heart healthy Patient Instructions: Antibiotic Form Patient Language: Macedonian Stand Alone Forms: General Discharge Information Follow-up/Referrals: Viridiana Moore MD [Primary Care Provider] - (F/u with PCP in 3-5 days ) Parminder Lozoya MD [Physician] - (F/u with urology as instructed ) Discharge Medications: New ciprofloxacin HCl [Cipro] 250 mg tablet 250 mg PO Q12H 3 Days Qty: 6 0RF Continued phenytoin sodium extended 100 mg capsule 300 mg PO BID aspirin 81 mg Tablet,Delayed Release (Dr/Ec) 81 mg PO DAILY metoprolol succinate [Toprol XL] 50 mg tablet extended release 24 hr 50 mg PO DAILY 30 Days Qty: 30 0RF amlodipine 5 mg tablet 5 mg PO DAILY 30 Days Qty: 30 0RF rosuvastatin 20 mg tablet 20 mg PO HS 30 Days Qty: 30 0RF nitroglycerin 0.3 mg tablet, sublingual 0.3 mg sublingual Q5-15M PRN (Reason: chest pain) Qty: 30 0RF Rx Instructions: do not exceed 3 doses per episode omeprazole 20 mg tablet,delayed release (DR/EC) 20 mg PO DAILY Qty: 14 0RF ketorolac 10 mg tablet 10 mg PO Q8H PRN (Reason: pain) 5 Days Qty: 14 0RF Rx Instructions: maximum total duration of 5 days from all oral, intranasal, or parenteral formulations; received first dose in ED tamsulosin 0.4 mg capsule 0.4 mg PO DAILY Qty: 12 0RF ondansetron 4 mg tablet,disintegrating 4 mg PO Q8H PRN (Reason: nausea and vomiting) Qty: 7 0RF loratadine [Allergy Relief (loratadine)] 10 mg tablet 10 mg PO DAILY docusate sodium 100 mg tablet 100 mg PO DAILY telmisartan 40 mg tablet 40 mg PO DAILY Qty: 90 1RF lorazepam 0.5 mg tablet 0.5 mg PO .COMPLEX PRN (Reason: anxiety) Qty: 5 0RF Rx Instructions: 0.5 mg orally PRN; Take 1 tablet 30 minutes before procedure Date of admission: 11/25/24 19:40 Primary Care Provider: Viridiana Moore Admitting Provider: Mayra Wright Attending physician on admission: Mayra Wright Condition: Stable
[2024-11-26] MEDS: HYDROcodone/acetaminophen (*CRX) 10-325 MG TABLET 1 TAB PO (15:39)
[2024-11-26 16:20] LABS: Procalcitonin 0.1 ng/mL
[2024-11-26] MEDS: ROSUVASTATIN 20 MG TABLET PO (20:35)
[2024-11-26] MEDS: HYDROcodone/acetaminophen (*CRX) 5-325 MG TABLET 1 TAB PO (20:35)
[2024-11-27] MEDS: HYDROmorphone HCL INJ (*CRX) 2 MG/ML VIAL 1 MG IV PUSH (04:01)
[2024-11-27 06:00] VITALS: BP 127/69; PULSE 63; RESP 16; TEMP 36.4; O2SAT 100
[2024-11-27] MEDS: HYDROcodone/acetaminophen (*CRX) 5-325 MG TABLET 1 TAB PO (08:34)
[2024-11-27] MEDS: DOCUSATE SODIUM 100 MG CAPSULE PO (08:35)
[2024-11-27] MEDS: PHENYTOIN SODIUM 100 MG EXTENDED RELEASE CAP 300 MG PO (08:35)
[2024-11-27] MEDS: LORATADINE 10 MG TABLET PO (08:35)
--- NOTE | 2024-11-27 12:07 | PM.DS ---
DS: Admitting Diagnosis Discharge Date 11/27/2024 Admitting Diagnosis Left lower abdominal pain DS: Discharge Diagnosis Discharge Diagnosis (1) Calculus of ureterovesical junction (UVJ): Code(s): N20.1 - Calculus of ureter Status: Acute DS: Summary Hospital Course Hospital Course: A 64-year-old male with past medical history CAD with NSTEMI status post PCI to OM1 and distal LCX in 2013 (chest pain evaluated in 2021 at [facility] found to have very small apical reversible defect, decided on medical management), hypertension, hyperlipidemia, seizure disorder. Presents to [facility] on 11/25/2024 with left lower quadrant pain. No vomiting, no diarrhea, last BM normal on day of admission. Previously presented on 10/31/2024 with similar symptom and found to have 4 mm stone in mid left ureter causing mild objective uropathy. Discharge with omeprazole, Ketoralac, tamsulosin, Zofran. Repeat CT abdomen pelvis without contrast demonstrates advancement of 4 mm left ureteral stone now in the ureteral vesicular junction with persistent mild left hydro ureter nephrosis. WBC 11.1, urinalysis 1+ protein. 11-20 RBC. Receive Toradol 30 mg IM x1, Dilaudid 1 mg IV x1, tamsulosin 0.4 mg p.o. x1. Upon repeat evaluation the patient is resting comfortably. Urology was consulted and Cystoscopy, left retrograde, left ureteroscopy with laser, stent placement 4.8 Occitan contour. patient spent one more night due to severe pain which has markedly improved this morning Patient was discharged on Cipro x 3 days. PRN pain control with 10/325 Hydrocodone/Tylenol 10 tabs q6 PRN. F/u with PCP in 3-5 days F/u with Urology as instructed Time Spent with Patient Time attestation: Total time spent providing and/or coordinating discharge services: DS: Data Data Completed and Pending Labs on day of discharge: Labs from last 24 hours 11/26/24 06:19 Procalcitonin 0.1 Discharge Plan Discharge Attending physician on discharge: Kirill Randall Consulting providers: Parminder Lozoya Discharging Clinician: Kirill Randall Anticipated Discharge Date/Time: 11/26/24 14:58 Patient Disposition: Home Activity: as tolerated Diet: as tolerated and heart healthy Patient Instructions: Antibiotic Form, Pain Management in Older Adults (DC) Patient Language: Polish Stand Alone Forms: General Discharge Information Follow-up/Referrals: Viridiana Moore MD [Primary Care Provider] - (F/u with PCP in 3-5 days ) Parminder Lozoya MD [Physician] - (F/u with urology as instructed ) Discharge Medications: New hydrocodone-acetaminophen 10-325 mg tablet 1 tablet PO Q6H PRN (Reason: pain) 10 Days Qty: 10 0RF ciprofloxacin HCl [Cipro] 250 mg tablet 250 mg PO Q12H 3 Days Qty: 6 0RF Continued phenytoin sodium extended 100 mg capsule 300 mg PO BID aspirin 81 mg Tablet,Delayed Release (Dr/Ec) 81 mg PO DAILY metoprolol succinate [Toprol XL] 50 mg tablet extended release 24 hr 50 mg PO DAILY 30 Days Qty: 30 0RF amlodipine 5 mg tablet 5 mg PO DAILY 30 Days Qty: 30 0RF rosuvastatin 20 mg tablet 20 mg PO HS 30 Days Qty: 30 0RF nitroglycerin 0.3 mg tablet, sublingual 0.3 mg sublingual Q5-15M PRN (Reason: chest pain) Qty: 30 0RF Rx Instructions: do not exceed 3 doses per episode omeprazole 20 mg tablet,delayed release (DR/EC) 20 mg PO DAILY Qty: 14 0RF ketorolac 10 mg tablet 10 mg PO Q8H PRN (Reason: pain) 5 Days Qty: 14 0RF Rx Instructions: maximum total duration of 5 days from all oral, intranasal, or parenteral formulations; received first dose in ED tamsulosin 0.4 mg capsule 0.4 mg PO DAILY Qty: 12 0RF ondansetron 4 mg tablet,disintegrating 4 mg PO Q8H PRN (Reason: nausea and vomiting) Qty: 7 0RF loratadine [Allergy Relief (loratadine)] 10 mg tablet 10 mg PO DAILY docusate sodium 100 mg tablet 100 mg PO DAILY telmisartan 40 mg tablet 40 mg PO DAILY Qty: 90 1RF lorazepam 0.5 mg tablet 0.5 mg PO .COMPLEX PRN (Reason: anxiety) Qty: 5 0RF Rx Instructions: 0.5 mg orally PRN; Take 1 tablet 30 minutes before procedure Date of admission: 11/25/24 19:40 Primary Care Provider: Viridiana Moore Admitting Provider: Mayra Wright Attending physician on admission: Mayra Wright Condition: Stable
== END 2024-11-27 13:39 | disposition home or self-care (01) ==
LOC: ANHED 19:49 → ANH3MEDSUR 11-26 07:29
PROVIDERS: Physician Assistant; Urology; Admitting Provider General Practice; Emergency Provider Student in an Organized Health Care Education/Training Program; PCP Family Medicine; Visit Provider Internal Medicine
PROC: (CPT 52352; principal; 2024-11-26 14:00)
DX: N13.2 Hydronephrosis with renal and ureteral calculous obstruction (principal); D72.829 Elevated white blood cell count, unspecified; R52 Pain, unspecified; I25.10 Atherosclerotic heart disease of native coronary artery without angina pectoris; I10 Essential (primary) hypertension; I25.2 Old myocardial infarction; J45.909 Unspecified asthma, uncomplicated; G40.909 Epilepsy, unspecified, not intractable, without status epilepticus; E78.5 Hyperlipidemia, unspecified; E66.9 Obesity, unspecified; Z68.32 Body mass index [BMI] 32.0-32.9, adult; Z79.82 Long term (current) use of aspirin; Z79.899 Other long term (current) drug therapy; Z87.891 Personal history of nicotine dependence; Z88.2 Allergy status to sulfonamides; Z85.53 Personal history of malignant neoplasm of renal pelvis; Z95.5 Presence of coronary angioplasty implant and graft
CPT/HCPCS: 52356; 36415; 74176; 74420; 80048; 80053; 81001; 83690; 83735; 84145; 85025; 85610; 93005; 96372; 96374; 96375; 99285; J0690; A9270; C1769; C2617; G0378; J1100; J1171; J1885; J2405; J2704; J7120; Q9966

== ENCOUNTER 2025-02-14 07:46 | Outpatient (CLI) | payer OTHER, SELFPAY ==
--- NOTE | ~2025-02-14 | CT_ITS ---
EXAMINATION:CT diagnostic chest wo con DATE: 02/14/2025 08:04 INDICATION: Solitary pulmonary nodule. TECHNIQUE: Computed tomography (CT) of the chest was performed without intravenous contrast. Automated exposure control and iterative reconstruction technique were employed. The dose-length product (DLP) was 257.91 mGy-cm. COMPARISON: Chest CT 01/30/2019 FINDINGS: The lungs demonstrate mild atelectasis. A 9 mm nodule with central calcification in right middle lobe is consistent with old granulomatous disease. There are a few nodules in the lungs measuring up to 2 mm, likely benign. No pleural effusion. The heart size is normal. There are coronary artery calcifications. No pericardial effusion. There is a 12 mm nodule in the thyroid, likely not clinically significant. There are cysts in the kidneys measuring up to 2.3 cm on the right. There is a 1.6 cm hemorrhagic cyst in right kidney. There is mild thoracic spondylosis. There is mild chronic height loss of multiple vertebral bodies. IMPRESSION: 1. Benign lung nodules. Reviewed, dictated and finalized at location E. IMPRESSION: 1. Benign lung nodules.
--- OUTSIDE RECORDS SUMMARY | 2025-02-14 07:52 | XMS_ITS | Clinical Summary ---
Author Organization [facility] Address [address] [place] [address] Care Team Providers Care Rubber Molder Name Role Phone Eamon Soliman Primary Care Provider [phone] Allergies Active Allergy Reactions Criticality Noted Date Comments Sulfa (Sulfonamide Antibiotics) Shortness of breath High 02/04/2019 Medications [id number] open-lutein (CENTRUM SILVER ULTRA MEN'S) 300-600-300 mcg [...] extended release tabletIndications:C oronary artery disease of [place] artery of [place] heart with stable angina pectoris TAKE 1 TABLET BY MOUTH EVERY DAY 90 tablet 2 5 Active amLODIPine (NORVASC) 5 mg tabletIndications:C oronary artery disease of [place] artery of [place] heart with stable angina pectoris TAKE 1 TABLET (5 MG TOTAL) BY MOUTH DAILY. 90 tablet 2 5 Active rosuvastatin (CRESTOR) 20 mg tabletIndications:C oronary artery disease of [place] artery of [place] heart with stable angina pectoris TAKE 1 TABLET BY MOUTH EVERY DAY AT NIGHT 90 tablet 2 5 Active phenytoin ER (DILANTIN) 100 mg ER capsuleIndications: Complex partial epilepsy with generalization (HCC) Take 3 capsules (300 mg total) by mouth 2 (two) times a day 540 capsule 1 5 03/30/20 25 Active Active Problems Problem Noted Date Diagnosed Date Complex partial epilepsy with generalization Assessment & Plan (08/28/2020 8:40 AM CDT): Patient's history complex partial seizure secondary generalization formally managed [facility]. Since last being seen a year [...] placement 12/24/2016 Coronary artery disease invo lving [place] coronary artery of [place] heart without angina pectoris 04/07/2014 Overview (08/10/2016): Coronary arteriosclerosis in [place] artery Surgical History Surgery Date Site/Laterality Comments US [...] on file Legal Sex Male 2:22 AM GLOVE FORMER Gender Identity Male 05/08/2021 3:34 PM GLOVE FORMER Sexual Orientation Straight 05/08/2021 3: 34 PM [facility]OVE FORMER Obstetrics History Last Filed Vital Signs Vital [...] - Td or Tdap) 07/27/2028, 02/21/2009 Insurance [facility] CHOICE PLUS [facility] CHOICE PLUS [facility] [employer] Care Teams Rubber Molder Relationship Specialty Start Date End Date Eamon Soliman PA [address] [place] [address] PCP - General Physician Technology Professional 09/14/20
== END 2025-02-14 07:47 | disposition home or self-care (01) ==
PROVIDERS: PCP Family Medicine; Visit Provider Family Medicine
DX: R91.1 Solitary pulmonary nodule (principal); R91.8 Other nonspecific abnormal finding of lung field
CPT/HCPCS: 71250

== ENCOUNTER 2025-02-14 09:10 | Outpatient (CLI) | payer OTHER, SELFPAY ==
--- OUTSIDE RECORDS SUMMARY | 2025-02-14 09:37 | XMS_ITS | Clinical Summary ---
Author Organization [facility] Address [address] [place] [address] Care Team Providers Care Liquefaction And Regasification Helper Name Role Phone Eamon Soliman Primary Care Provider [phone] Allergies Active Allergy Reactions Criticality Noted Date Comments Sulfa (Sulfonamide Antibiotics) Shortness of breath High 02/04/2019 Medications [id number]-lyc open-lutein (CENTRUM SILVER ULTRA MEN'S) 300-600-300 mcg [...] extended release tabletIndications:C oronary artery disease of [place] artery of [place] heart with stable angina pectoris TAKE 1 TABLET BY MOUTH EVERY DAY 90 tablet 2 5 Active amLODIPine (NORVASC) 5 mg tabletIndications:C oronary artery disease of [place] artery of [place] heart with stable angina pectoris TAKE 1 TABLET (5 MG TOTAL) BY MOUTH DAILY. 90 tablet 2 5 Active rosuvastatin (CRESTOR) 20 mg tabletIndications:C oronary artery disease of [place] artery of [place] heart with stable angina pectoris TAKE 1 [...] complex partial seizure secondary generalization formally managed [facility]. 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
== END 2025-02-14 09:11 | disposition home or self-care (01) ==
LOC: ANHAUDIO 09:11
PROVIDERS: PCP Family Medicine; Visit Provider Student in an Organized Health Care Education/Training Program
DX: H90.3 Sensorineural hearing loss, bilateral (principal)
CPT/HCPCS: 92557; 92567

== ENCOUNTER 2025-03-02 00:16 | Day surgery (SDC) | payer OTHER, SELFPAY ==
[2025-02-21 12:49] VITALS: BMI 33.7
[2025-03-02 09:40] VITALS: BP 168/96; PULSE 72; RESP 16; TEMP 36.6; O2SAT 98; BMI 32.7
[2025-03-02] MEDS: LACTATED RINGERS 1,000 ML 150 ML IV CONT (09:49)
--- NOTE | 2025-03-02 10:36 | PM.IMHP ---
H&P: HPI History of Present Illness Date/Time: 03/02/25 10:36 Chief Complaint: History of colon polyps Narrative: The patient has a history of colonic polyps, the last colonoscopy was 3 years ago, finding tubular adenomas. Now referred for colonoscopy. Review of Systems Review of Systems: All systems reviewed & are unremarkable except as noted in HPI and below PMFSH Past Medical History Medical History Tobacco dependence Hypertension Coronary artery disease Patient of Dr. Nikhil Garcia. Foot fracture, right Asthma Hyperlipemia Seizure disorder He has not had a seizure since 1994, but is on long-term Dilantin as he apparently had recurrent seizures when that drug was stopped. Renal malignant neoplasm Status post cryoablation in 2014. Renal cyst, acquired Surgical History Surgical History History of colonoscopy History of removal of cyst Status post incision and drainage Left facial abscess. History of tonsillectomy History of heart artery stent (2013) x 2 in 2013. Family History Family History Sibling Cerebrovascular accident Mother Family history of Alzheimer's disease Sibling Lymphoma Father Hypertension Acute myocardial infarction Grandparent Congestive heart failure Social History Social History Social History: The patient is and lives with his in [place]. They have 2 children. 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 No alcohol or drug abuse. he designates his , Lanie Saleem, as his surrogate decision maker and he wishes to be a full code. Smoking packs per day: 0.5 Smoking cigarettes per day: 10.0 Smoking status: Former smoker Tobacco type: cigarettes Second hand tobacco smoke exposure: Yes Smoking end date: 06/05/24 Alcohol intake: current Substance use: never Do You Feel Safe in your Home?: Yes Lack of Transportation: No Lack of Food: Never True Current Housing: I Have Housing Concerned About Future Housing: No Difficulty Paying Gas/Electric Bills: No Difficulty Paying for Meds: No Currently Unemployed: No Education: High School Diploma/GED Difficulty w/ Childcare or Family Care: No Living arrangements: with family Occupation/Education: retired Additional occupation/education comments: watches his grandchildren; 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. Spiritual care concerns: No Agree to blood products: Yes Meds Home Medications and Allergies Home Medications ?Medication ?Instructions ?Recorded ?Confirmed ?Type phenytoin sodium extended 100 mg 300 mg PO BID 05/10/19 03/02/25 History capsule aspirin 81 mg tablet,delayed 81 mg PO DAILY 01/21/22 03/02/25 History release amlodipine 5 mg tablet 5 mg PO DAILY 30 days #30 tabs 01/23/22 03/02/25 Rx metoprolol succinate 50 mg 50 mg PO DAILY 30 days #30 tabs 01/23/22 03/02/25 Rx tablet,extended release 24 hr (Toprol XL) nitroglycerin 0.3 mg sublingual 0.3 mg sublingual Q5-15M PRN chest 01/23/22 02/21/25 Rx tablet pain #30 tabs rosuvastatin 20 mg tablet 20 mg PO HS 30 days #30 tabs 01/23/22 03/02/25 Rx omeprazole 20 mg tablet,delayed 20 mg PO DAILY #14 tabs 10/31/24 03/02/25 Rx release docusate sodium 100 mg tablet 100 mg PO DAILY stool softner 11/25/24 02/21/25 History loratadine 10 mg tablet (Allergy 10 mg PO DAILY allergy relief 11/25/24 03/02/25 History Relief (loratadine)) multivitamin (Daily Multi-Vitamin 1 tablet PO DAILY 02/21/25 03/02/25 History tablet) Allergies Allergy/AdvReac Type Severity Reaction Status Date / Time Sulfa (Sulfonamide AdvReac Severe Other Verified 03/02/25 09:38 Antibiotics) Vital Signs Vital Signs - 24 hr 03/02/25 09:40 Temperature 97.9 F Pulse Rate 72 Respiratory Rate 16 Blood Pressure 168/96 H Pulse Oximetry 98 Oxygen Delivery Room Air Exam Const: General: cooperative and healthy appearing Resp: Effort & Inspection: normal respiratory effort and able to speak in complete sentences Auscultation: clear to auscultation bilaterally Cardio: Rate: regular rate Rhythm: regular rhythm GI: Inspection: normal to inspection GI Palp: No No hepatosplenomegaly present Auscultation: normal bowel sounds Rectal Exam: deferred Skin: General skin exam: normal color Psych: Appearance: grossly normal Mental Status: mental status grossly normal Assessment and Plan Assessment and plan (1) History of colonic polyps: Code(s): Z86.0100 - Personal history of colon polyps, unspecified Status: Acute Assessment and Plan: The patient is deemed a good candidate for the procedure. Consent signed. Will proceed.
--- NOTE | 2025-03-02 10:39 | WPDANESEPPF ---
Anes - Initial Pre Proc Eval Procedure: Operation Date: 03/02/25 11:00 Proposed Procedures p Screening Colonoscopy - Bridger Morel MD Date/Time: 03/02/25 10:39 Surgeon: Bridger Morel MD Pre Op Diagnosis: Personal history of colon polyps, unspecified Patient Data Age: 64 Gender: M Height: 1.83 m Weight: 109.4 kg Last Vital Signs Temp 97.9 F 03/02/25 09:40 Pulse 72 03/02/25 09:40 Resp 16 03/02/25 09:40 BP 168/96 H 03/02/25 09:40 Pulse Ox 98 03/02/25 09:40 O2 Del Method Room Air 03/02/25 09:40 Allergies Allergy/AdvReac Type Severity Reaction Status Date / Time Sulfa (Sulfonamide AdvReac Severe Other Verified 03/02/25 09:38 Antibiotics) Home Medications ?Medication ?Instructions ?Recorded ?Confirmed ?Type phenytoin sodium extended 100 mg 300 mg PO BID 05/10/19 03/02/25 History capsule aspirin 81 mg tablet,delayed 81 mg PO DAILY 01/21/22 03/02/25 History release amlodipine 5 mg tablet 5 mg PO DAILY 30 days #30 tabs 01/23/22 03/02/25 Rx metoprolol succinate 50 mg 50 mg PO DAILY 30 days #30 tabs 01/23/22 03/02/25 Rx tablet,extended release 24 hr (Toprol XL) nitroglycerin 0.3 mg sublingual 0.3 mg sublingual Q5-15M PRN chest 01/23/22 02/21/25 Rx tablet pain #30 tabs rosuvastatin 20 mg tablet 20 mg PO HS 30 days #30 tabs 01/23/22 03/02/25 Rx omeprazole 20 mg tablet,delayed 20 mg PO DAILY #14 tabs 10/31/24 03/02/25 Rx release docusate sodium 100 mg tablet 100 mg PO DAILY stool softner 11/25/24 02/21/25 History loratadine 10 mg tablet (Allergy 10 mg PO DAILY allergy relief 11/25/24 03/02/25 History Relief (loratadine)) multivitamin (Daily Multi-Vitamin 1 tablet PO DAILY 02/21/25 03/02/25 History tablet) Patient hx anesthesia problems: none Family hx anesthesia problems: none Results Review: All pre-operative results and documents have been reviewed as part of the pre-operative evaluation. [facility] Past Medical History Medical History Tobacco dependence Hypertension Coronary artery disease Patient of Dr. Nikhil Garcia. Foot fracture, right Asthma Hyperlipemia Seizure disorder He has not had a seizure since 1994, but is on long-term Dilantin as he apparently had recurrent seizures when that drug was stopped. Renal malignant neoplasm Status post cryoablation in 2014. Renal cyst, acquired Surgical History Surgical History History of colonoscopy History of removal of cyst Status post incision and drainage Left facial abscess. History of tonsillectomy History of heart artery stent (2013) x 2 in 2013. Family History Family History Sibling Cerebrovascular accident Mother Family history of Alzheimer's disease Sibling Lymphoma Father Hypertension Acute myocardial infarction Grandparent Congestive heart failure Social History Social History Social History: The patient is and lives with his in [place]. They have 2 children. 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 No alcohol or drug abuse. he designates his , Lanie Saleem, as his surrogate decision maker and he wishes to be a full code. Smoking packs per day: 0.5 Smoking cigarettes per day: 10.0 Smoking status: Former smoker Tobacco type: cigarettes Second hand tobacco smoke exposure: Yes Smoking end date: 06/05/24 Alcohol intake: current Substance use: never Do You Feel Safe in your Home?: Yes Lack of Transportation: No Lack of Food: Never True Current Housing: I Have Housing Concerned About Future Housing: No Difficulty Paying Gas/Electric Bills: No Difficulty Paying for Meds: No Currently Unemployed: No Education: High School Diploma/GED Difficulty w/ Childcare or Family Care: No Living arrangements: with family Occupation/Education: retired Additional occupation/education comments: watches his grandchildren; 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 Spiritual care concerns: No Agree to blood products: Yes Anes - Eval Final PreProcedure Day of Procedure 10/29/25 10:39 Patient weight: obese Lungs: normal air movement Airway: Mallampati scale class II Neurological: alert and oriented Last oral intake: >/= 8 hours ASA classification: III Emergent: no Anesthetic plan: proceed Anesthesia type and monitoring: general GIVS and standard monitoring Results Review: All pre-operative results and documents have been reviewed as part of the pre-operative evaluation. HTN, hyperlipidemia, hx of seizure disorder none for approx 30 years. Informed Consent: The patient's anesthetic plan and its attendant risks and benefits were discussed with the patient/family/POA. Questions were solicited and answers provided to the satisfaction of the patient/family/POA.
--- NOTE | 2025-03-02 11:18 | S_PTH ---
PATIENT: Klaus Saleem LOC: [facility] Jackman#:[id number] AGE/SX: 64/M ROOM: RE03/02/[address]: Bridger Morel MD : 1960 BED: DIS: 03/02/2025 SPEC #: [id number] RECD: 03/02/25 13:16 STATUS: AUSTIN REDilan #: [id number] ALAN: 03/02/25 11:[address]: Bridger Morel DEPT: [facility] Surgical RECD BY: Valorie Devine ENTERED: 03/02/25 13:18 SP TYPE: Surgical OTHR DR: Viridiana MooreMD Tissues: A - Colon Polypectomy B - Colon Polypectomy C - Colon Polypectomy D - Colon Polypectomy Procedures: Hematoxylin and Eosin Stain Gross and Microscopic Level 4
[2025-03-02 11:19] VITALS: BP 148/95; PULSE 58; RESP 18; O2SAT 100
[2025-03-02 11:29] VITALS: BP 133/93; PULSE 68; RESP 16; O2SAT 100
[2025-03-02 11:39] VITALS: BP 148/95; PULSE 63; RESP 18; O2SAT 100
== END 2025-03-02 11:51 | disposition home or self-care (01) ==
PROVIDERS: PCP Family Medicine; Referring Provider Internal Medicine Gastroenterology; Visit Provider Internal Medicine Gastroenterology
PROC: 0DJD8ZZ Inspection of Lower Intestinal Tract, Via Natural or Artificial Opening Endoscopic (ICD-10-PCS; CPT 45378; principal; 2025-03-02 11:00)
DX: Z12.11 Encounter for screening for malignant neoplasm of colon (principal); D12.2 Benign neoplasm of ascending colon; D12.3 Benign neoplasm of transverse colon; D12.4 Benign neoplasm of descending colon; K62.1 Rectal polyp; K57.30 Diverticulosis of large intestine without perforation or abscess without bleeding; Z87.891 Personal history of nicotine dependence; E66.9 Obesity, unspecified; Z68.32 Body mass index [BMI] 32.0-32.9, adult
CPT/HCPCS: 45381; 45385; 88305; J2003; J2704; J7120

== ENCOUNTER 2025-03-13 17:33 | Emergency (ER) | payer OTHER, SELFPAY ==
--- NOTE | ~2025-03-13 | XR_ITS ---
EXAMINATION: XR chest 2V, 03/13/2025 18:23 MILITARY EXCHANGE WIRELESS MANAGER HISTORY: dizziness COMPARISON: No comparisons available. Technique: 2 views obtained. Findings: The lungs are clear, no effusion. No pneumothorax. Heart is normal size. Mediastinal and hilar contours are within normal limits. Bony thorax no acute abnormality. Impression: No acute cardiopulmonary abnormality. Reviewed, dictated and finalized at location P. TARY EXCHANGE WIRELESS MANAGER Impression: No acute cardiopulmonary abnormality.
--- NOTE | ~2025-03-13 | CT_ITS ---
EXAMINATION: CT brain wo james, 03/13/2025 17:46 SLIP FILLER HISTORY: headache, dizziness COMPARISON: No comparisons available. Technique: Axial images obtained of the brain without contrast. One or more of the following dose reduction techniques were used: automated exposure control, adjustment of the mA and/or kV according to patient size, use of iterative reconstruction technique. Findings: No acute infarct or parenchymal hemorrhage. No abnormal mass or mass effect. No midline shift. No extra-axial fluid collections. No hydrocephalus. Mastoid air cells unremarkable. Sinuses and orbits unremarkable. No acute fracture. No significant facial or scalp soft tissue swelling evident. No radiopaque foreign body is seen. Impression: 1.No acute intracranial abnormality. Reviewed, dictated and finalized at location P. FILLER Impression: 1.No acute intracranial abnormality.
[2025-03-13 17:33] VITALS: BP 166/97; PULSE 70; RESP 18; O2SAT 100
[2025-03-13 17:34] VITALS: BP 166/97; PULSE 70; RESP 18; TEMP 36.8; O2SAT 98
[2025-03-13 17:35] VITALS: BP 170/97; PULSE 71
[2025-03-13 17:37] VITALS: BP 174/103; PULSE 68
--- NOTE | 2025-03-13 17:44 | ECG_ITS ---
Test Date: 2025-03-13 17:48:01 Measurements Intervals [place] Rate: 62 P: 16 OH: 154 QRS: 0 QRSD: 110 T: 42 QT: 414 QTc: 421 Interpretive Statements SINUS RHYTHM POSSIBLE RIGHT VENTRICULAR CONDUCTION DELAY [RSR (QR) IN V1/V2] Compared to ECG 11/26/2024 11:42:12 Sinus bradycardia no longer present Electronically Signed On 03-14-2025 18:24:44 C D REACTOR OPERATOR by Yareli Nicole M.D.
--- NOTE | 2025-03-13 17:47 | ED.GENADULT ---
HPI - General Adult General Chief complaint: Headache Stated complaint: hypertension and headache Time Seen by Provider: 03/13/25 17:44 Source: patient Mode of arrival: ambulatory Limitations: no limitations History of Present Illness HPI narrative: 64 years old white male came to the ED from home by private car with his telling me that he been having intermittent left side throbbing headache started 1 week ago. He denies fever, chills, nausea, vomiting, upper respiratory symptoms, chest pain, shortness of breath, back pain or any stress lately. 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 2 weeks ago for regular checkup and his blood pressure was 170/87 at that time, Related Data Home Medications ?Medication ?Instructions ?Recorded ?Confirmed ?Last Taken ?Type phenytoin sodium extended 100 mg 300 mg PO BID 05/10/19 03/02/25 03/02/25 History capsule aspirin 81 mg tablet,delayed 81 mg PO DAILY 01/21/22 03/02/25 03/01/25 History release docusate sodium 100 mg tablet 100 mg PO DAILY stool softner 11/25/24 02/21/25 11/24/24 History loratadine 10 mg tablet (Allergy 10 mg PO DAILY allergy relief 11/25/24 03/02/25 03/01/25 History Relief (loratadine)) multivitamin (Daily Multi-Vitamin 1 tablet PO DAILY 02/21/25 03/02/25 03/01/25 History tablet) Allergies Allergy/AdvReac Type Severity Reaction Status Date / Time Sulfa (Sulfonamide AdvReac Severe Other Verified 03/02/25 09:38 Antibiotics) [facility] Past Medical History Medical History Tobacco dependence Hypertension Coronary artery disease Patient of Dr. Nikhil Garcia. Foot fracture, right Asthma Hyperlipemia Seizure disorder He has not had a seizure since 1994, but is on long-term Dilantin as he apparently had recurrent seizures when that drug was stopped. Renal malignant neoplasm Status post cryoablation in 2014. Renal cyst, acquired Surgical History Surgical History History of colonoscopy History of removal of cyst Status post incision and drainage Left facial abscess. History of tonsillectomy History of heart artery stent (2013) x 2 in 2014. Family History Family History Sibling Cerebrovascular accident Mother Family history of Alzheimer's disease Sibling Lymphoma Father Hypertension Acute myocardial infarction Grandparent Congestive heart failure Social History Social History Social History: The patient is and lives with his in [place]. They have 2 children. 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 No alcohol or drug abuse. he designates his , Lanie Saleem, as his surrogate decision maker and he wishes to be a full code. Smoking packs per day: 0.5 Smoking cigarettes per day: 10.0 Tobacco type: cigarettes Second hand tobacco smoke exposure: Yes Smoking end date: 06/05/24 Alcohol intake: current Substance use: never Do You Feel Safe in your Home?: Yes Lack of Transportation: No Lack of Food: Never True Current Housing: I Have Housing Concerned About Future Housing: No Difficulty Paying Gas/Electric Bills: No Difficulty Paying for Meds: No Currently Unemployed: No Education: High School Diploma/GED Difficulty w/ Childcare or Family Care: No Living arrangements: with family Occupation/Education: retired Additional occupation/education comments: 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 Spiritual care concerns: No Agree to blood products: Yes Course Vital Signs Vital signs: Vital Signs Pulse Rate 70 03/13/25 17:33 Respiratory Rate 18 03/13/25 17:33 Blood Pressure 166/97 H 03/13/25 17:33 Pulse Oximetry 100 03/13/25 17:33 Temperature 36.8 C 03/13/25 17:34 Pulse Rate 62 03/13/25 18:30 Respiratory Rate 18 03/13/25 18:30 Blood Pressure 150/99 H 03/13/25 18:30 Pulse Oximetry 97 03/13/25 18:30 Oxygen Delivery Room Air 03/13/25 17:34 Medical Decision Making MDM Narrative Medical decision making narrative: Patient presents with intermittent left-sided headache, and elevated blood pressure Vital signs showing blood pressure 166/97 otherwise within normal limit Physical examination insignificant Differential diagnosis included migraine headache, tension headache, elevated blood pressure, Blood workup today includes CBC, CMP, troponin, coags showed no significant abnormalities CT head without contrast showed no acute abnormality Chest x-ray showed no acute abnormality EKG showed normal sinus rhythm at 62 beats per minute, compared to EKG on November 26, 2024 sinus bradycardia no longer present. In the ED patient received labetalol 10 mg IV, Dilaudid 0.5 mg IV Zofran from ID with remarkable improvement. Diagnosis: Headache of unknown etiology Vital Signs Vital Signs: Vital Signs Pulse Rate 70 03/13/25 17:33 Respiratory Rate 18 03/13/25 17:33 Blood Pressure 166/97 H 03/13/25 17:33 Pulse Oximetry 100 03/13/25 17:33 Temperature 36.8 C 03/13/25 17:34 Pulse Rate 62 03/13/25 18:30 Respiratory Rate 18 03/13/25 18:30 Blood Pressure 150/99 H 03/13/25 18:30 Pulse Oximetry 97 03/13/25 18:30 Oxygen Delivery Room Air 03/13/25 17:34 Lab Data 03/13/25 17:50 03/13/25 17:50 Labs: Lab Results 03/13/25 Range/Units 17:50 WBC 9.2 (4.5-10.0) K/mm3 RBC 4.76 (4.6-6.20) M/mm3 Hgb 14.9 (14.0-18.0) g/dL Hct 44.6 (42.0-52.0) % MCV 93.7 (80-100) fl MCH 31.3 (26-34) pg MCHC 33.4 (32-36) g/dl RDW 13.5 (11.5-14.5) % Plt Count 189 (150-375) k/mm3 MPV 9.1 (7.4-10.4) fl Immature Gran % (Auto) 0.2 (0-0.5) % Neut % (Auto) 45.4 L (45.5-73.1) % Lymph % (Auto) 40.2 (18.3-44.2) % Placer % (Auto) 9.8 H (2.6-8.5) % Eos % (Auto) 3.6 (0-4.4) % Baso % (Auto) 0.8 (0.2-1.2) % Lymph # (Auto) 3.70 H (0.9-3.2) K/mm3 Placer # (Auto) 0.9 H (0.1-0.6) K/mm3 Eos # (Auto) 0.3 (0-0.3) K/mm3 Baso # (Auto) 0.1 (0.0-0.1) K/mm3 Abs Immat Gran (auto) 0.02 (0.00-0.031) K/mm3 Absolute Neuts (auto) 4.2 (1.3-6.7) K/mm3 Absolute Nucleated RBC 0.000 (0.0-0.012) K/mm3 Nucleated RBC % 0.0 (0.0-0.2) % PT 12.3 (11.1-14.7) Seconds INR 0.9 APTT 32.8 (22.3-36.8) Seconds Sodium 137 (137-145) mmol/L Potassium 4.8 (3.4-5.0) mmol/L Chloride 104 (98-107) mmol/L Carbon Dioxide 28 (22-30) mmol/L Anion Gap 5 (4-12) mmol/L BUN 12 D (9-20) mg/dL Creatinine 0.90 (0.7-1.3) mg/dL Estim Creat Clear Calc Not Reportable Estimated GFR > 60 (59 - ) Glucose 80 (65-110) mg/dL Calcium 9.5 (8.4-10.2) mg/dL Total Bilirubin 0.3 (0.2-1.3) mg/dL AST 33 (17-59) U/L ALT 36 (6-50) U/L Alkaline Phosphatase 90 (38-126) U/L Troponin I < 0.012 (0.000-0.034) ng/mL Total Protein 7.2 (6.3-8.2) g/dL Albumin 4.2 (3.5-5.1) g/dL Discharge Plan Discharge Clinical Impression: Headache, Hypertension Patient Disposition: Home Condition: Improved Instructions: Hypertension (ED) Additional Instructions: Return if symptoms are worsening , call your family physician for appointment, take Tylenol as as needed for aches and pain, continue home medications. Patient Language: Gabonese Prescriptions: No Action phenytoin sodium extended 100 mg capsule 300 mg PO BID aspirin 81 mg Tablet,Delayed Release (Dr/Ec) 81 mg PO DAILY metoprolol succinate [Toprol XL] 50 mg tablet extended release 24 hr 50 mg PO DAILY 30 Days Qty: 30 0RF amlodipine 5 mg tablet 5 mg PO DAILY 30 Days Qty: 30 0RF rosuvastatin 20 mg tablet 20 mg PO HS 30 Days Qty: 30 0RF nitroglycerin 0.3 mg tablet, sublingual 0.3 mg sublingual Q5-15M PRN (Reason: chest pain) Qty: 30 0RF Rx Instructions: do not exceed 3 doses per episode multivitamin [Daily Multi-Vitamin] Tablet 1 tablet PO DAILY omeprazole 20 mg tablet,delayed release (DR/EC) 20 mg PO DAILY Qty: 14 0RF loratadine [Allergy Relief (loratadine)] 10 mg tablet 10 mg PO DAILY docusate sodium 100 mg tablet 100 mg PO DAILY Follow-up/Referrals: Oscar,MD Viridiana [Physician, Family Practice]
[2025-03-13 18:02] LABS: Hematocrit 44.6 % (42.0-52.0); Hemoglobin 14.9 g/dL (14.0-18.0); Immature Granulocyte Percent A 0.2 % (0-0.5); Lymphocytes Absolute Auto 3.70 K/mm3 (0.9-3.2); Mean Corpuscular HGB Conc 33.4 g/dl (32-36); Mean Corpuscular Hemoglobin 31.3 pg (26-34); Mean Corpuscular Volume 93.7 fl (80-100); Nucleated Red Blood Cells Absolute Auto 0.000 K/mm3 (0.0-0.012); Nucleated Red Blood Cells Perc 0.0 % (0.0-0.2); Platelet Count Result 189 k/mm3 (150-375); Red Blood Count 4.76 M/mm3 (4.6-6.20); White Blood Count 9.2 K/mm3 (4.5-10.0)
[2025-03-13] MEDS: HYDROmorphone HCL INJ (*CRX) 1 MG/ML SYR 0.5 MG IV PUSH (18:07)
[2025-03-13] MEDS: ONDANSETRON INJ 4 MG/2 ML VIAL IV PUSH (18:07)
--- OUTSIDE RECORDS SUMMARY | 2025-03-13 18:08 | XMS_ITS | Clinical Summary ---
Author Organization [facility] Address [address] [place] [address] Care Team Providers Care Real Estate Financial Analyst Name Role Phone Eamon Soliman Primary Care Provider [phone] Allergies Active Allergy Reactions Criticality Noted Date Comments Sulfa (Sulfonamide Antibiotics) Shortness of breath High 02/04/2019 Medications [id number]-[id number] open-lutein (CENTRUM SILVER ULTRA MEN'S) 300-600-300 mcg [...] extended release tabletIndications:C oronary artery disease of [place] artery of [place] heart with stable angina pectoris TAKE 1 TABLET BY MOUTH EVERY DAY 90 tablet 2 5 Active amLODIPine (NORVASC) 5 mg tabletIndications:C oronary artery disease of [place] artery of [place] heart with stable angina pectoris TAKE 1 TABLET (5 MG TOTAL) BY MOUTH DAILY. 90 tablet 2 5 Active rosuvastatin (CRESTOR) 20 mg tabletIndications:C oronary artery disease of [place] artery of [place] heart with stable angina pectoris TAKE 1 [...] complex partial seizure secondary generalization formally managed [facility]. Since last being seen a year [...] placement 12/24/2016 Coronary artery disease invo lving [place] coronary artery of [place] heart without angina pectoris 04/07/2014 Overview (08/10/2016): Coronary arteriosclerosis in [place] artery Encounters Date Type Department Care Team Description 02/22/2025 Orders Only [facility] Cardiology at [address] [place] [id number] Dahiana Nguyen MD 02/21/2025 9:15 AM CDT Office Visit [facility] Cardiology at [address] [place] [phone] Nikhil Garcia MD Coronary artery disease involving [place] coronary artery of [place] heart without angina pectoris (Primary Dx); S/P coronary artery stent placement from Last 3 Months Surgical History Surgery [...] on file Legal Sex Male 2:22 AM STRAINER TENDER Gender Identity Male 05/08/2021 3:34 PM STRAINER TENDER Sexual Orientation Straight 05/08/2021 3: 34 PM STRAINER TENDER Last Filed Vital Signs Vital Sign Reading Time Taken Comments Blood Pressure 170/104 02/21/2025 9:08 AM CDT Pulse 75 02/21/2025 9:08 AM CDT Temperature 36.8 C (98.3 F) 02/01/2022 8:16 AM CDT Respiratory Rate 12 12/24/2016 10:2 6 AM CDT Oxygen Saturation 98% 02/21/2025 9:08 AM CDT Inhaled Oxygen Concentration - - Weight 112.8 kg (248 lb 11.2 oz) 02/21/2025 9:08 AM CDT Height 182.9 cm (6') 02/21/2025 9:08 AM CDT Body Mass Index 33.73 02/21/2025 9:08 AM CDT Plan of Treatment Health Maintenance [...] - Td or Tdap) 07/27/2028, 02/21/2009 Insurance [facility] CHOICE PLUS [facility] [employer] Care Teams Real Estate Financial Analyst Relationship Specialty Start Date End Date Eamon Soliman PA [address] [place] [address] PCP - General Physician Automatic Splicing Machine Operator 09/14/20
[2025-03-13 18:12] LABS: Alanine Aminotransferase 36 U/L (6-50); Albumin Level 4.2 g/dL (3.5-5.1); Alkaline Phosphatase 90 U/L (38-126); Anion Gap 5 mmol/L (4-12); Aspartate Amino Transferase 33 U/L (17-59); Bilirubin,Total 0.3 mg/dL (0.2-1.3); Blood Urea Nitrogen 12 mg/dL (9-20); Calcium 9.5 mg/dL (8.4-10.2); Carbon Dioxide 28 mmol/L (22-30); Chloride 104 mmol/L (98-107); Estimated Glomerular Filt Rate > 60; Glucose 80 mg/dL (65-110); Potassium 4.8 mmol/L (3.4-5.0); Sodium 137 mmol/L (137-145); Total Protein 7.2 g/dL (6.3-8.2)
[2025-03-13 18:15] LABS: INR 0.9; Prothrombin Time 12.3 Seconds (11.1-14.7)
[2025-03-13 18:16] LABS: Partial Thromboplastin Time 32.8 Seconds (22.3-36.8)
[2025-03-13 18:23] LABS: Troponin I < 0.012 ng/mL (0.000-0.034)
[2025-03-13 18:30] VITALS: BP 150/99; PULSE 62; RESP 18; O2SAT 97
== END 2025-03-13 19:31 | disposition home or self-care (01) ==
PROVIDERS: Physician Assistant; Emergency Provider Emergency Medicine
DX: R51.9 Headache, unspecified (principal); I10 Essential (primary) hypertension; Z79.82 Long term (current) use of aspirin; E78.5 Hyperlipidemia, unspecified; I25.10 Atherosclerotic heart disease of native coronary artery without angina pectoris; J45.909 Unspecified asthma, uncomplicated; Z85.528 Personal history of other malignant neoplasm of kidney; G40.909 Epilepsy, unspecified, not intractable, without status epilepticus; Z87.891 Personal history of nicotine dependence
CPT/HCPCS: 36415; 70450; 71046; 80053; 84484; 85025; 85610; 85730; 93005; 96374; 96375; 99284; J1171; J2405

== ENCOUNTER 2025-03-22 09:40 | Outpatient (CLI) | payer OTHER, SELFPAY ==
--- NOTE | ~2025-03-22 | XR_ITS ---
EXAMINATION: XR knee RT 3V, 03/22/2025 10:00 TERMINAL GAUGER HISTORY: M25.561 - Pain in right knee COMPARISON: No comparisons available. Findings: No acute fracture or malalignment. No significant degenerative changes. Soft tissues unremarkable. Impression: No acute fracture or malalignment. Reviewed, dictated and finalized at location P. INAL GAUGER Impression: No acute fracture or malalignment.
--- NOTE | ~2025-03-22 | XR_ITS ---
EXAMINATION: XR shoulder RT min 2V, 03/22/2025 10:00 LEGAL EXECUTIVE HISTORY: M25.511 - Pain in right shoulder COMPARISON: No comparisons available. Findings: No acute fracture or malalignment. No significant degenerative changes. Soft tissues unremarkable. Impression: No acute fracture or malalignment. Reviewed, dictated and finalized at location P. L EXECUTIVE Impression: No acute fracture or malalignment.
--- NOTE | ~2025-03-22 | US_ITS ---
EXAM/PROCEDURE: US soft tissue head and neck HISTORY: R22.1 - Localized swelling, mass and lump, neck COMPARISON: None available. TECHNIQUE: Directed examination of reported palpable lump or mass posterior and inferior to the right ear. FINDINGS: 2.2 x 1.1 x 1.2 cm hypoechoic mass with no clearly demonstrable internal flow but with some posterior through transmission suggesting cystic nature. Possible lymph node superior to the area of concern measuring 7 x 6 x 5 mm. IMPRESSION: 2.2 cm mass or complex fluid accumulation in close proximity to the right ear and correlating to area of palpable concern. Differential considerations include infectious/inflammatory process with abscess not excluded. Cystic neoplasm is also not excluded. Correlation with contrast-enhanced soft tissue neck CT suggested. Reviewed, dictated and finalized at location A. ER PACKER IMPRESSION: 2.2 cm mass or complex fluid accumulation in close proximity to the right ear a nd correlating to area of palpable concern. Differential considerations include infectious/inflammatory process with abscess not excluded. Cystic neoplasm is also not excluded. Correlation with contrast-enhanced soft tissue neck CT leo jin.
== END 2025-03-22 09:41 | disposition home or self-care (01) ==
PROVIDERS: PCP Family Medicine Adolescent Medicine; Visit Provider Student in an Organized Health Care Education/Training Program
DX: R22.1 Localized swelling, mass and lump, neck (principal); M25.561 Pain in right knee; M25.511 Pain in right shoulder
CPT/HCPCS: 73030; 73562; 76536